=== PATIENT | female | born 1945 | race Caucasian/White ===

== ENCOUNTER 2017-10-17 10:10 | Outpatient (CLI) | payer MEDICARE ==
[~2017-10-17 10:10] MED LIST: ALBU8.5H8 IH; BUPR300T54 PO; CHOL10002 PO; GLIM4TAB79 PO; HYDR-565 PO; KEN0.1O TP; LISI-644 PO; MECL12.584 PO; METF-516 PO; OMEP20TA5 PO; SIMV40TA4 PO; SITA50TA7 PO
[2017-10-17] MEDS ORDERED: gadopentetate dimeglumine 7.5 MMOL/15 ML syringe ONE (14:48)
== END 2017-10-17 23:59 | disposition home or self-care (01) ==
LOC: RAD 10:10
PROVIDERS: ATTEND Family Medicine
DX: G31.9 Degenerative disease of nervous system, unspecified (principal); I10 Essential (primary) hypertension; E11.9 Type 2 diabetes mellitus without complications; J44.9 Chronic obstructive pulmonary disease, unspecified; Z87.891 Personal history of nicotine dependence
CPT/HCPCS: A9579

== ENCOUNTER 2017-12-05 12:08 | Inpatient (IN) | payer MEDICARE, OTHER ==
[~2017-12-05] VITALS: Ht 175.3 cm; Wt 68.2 kg
[~2017-12-05 12:08] MED LIST changes: +CYCL-394 PO; +DOCU-261 PO; -HYDR-565 PO; +HYDR-569 PO; +PROM25TA14
[2017-12-05 14:21] LABS: BASOPHILS % (AUTO) 0.3 % (0-1); EOSINOPHILS # (AUTO) 0.1 X10'3 (0-0.9); EOSINOPHILS % (AUTO) 1.7 % (0-6); HEMATOCRIT 40.8 % (35.0-45.0); HEMOGLOBIN 14.4 g/dl (12.0-16.0); LYMPHOCYTES # (AUTO) 1.3 X10'3 (1.1-4.8); LYMPHOCYTES % (AUTO) 20.8 % (21-51); MEAN CORPUSCULAR HEMOGLOBIN 35.6 PG (27.0-31.0); MEAN CORPUSCULAR HGB CONC 35.3 % (33.0-36.5); MEAN CORPUSCULAR VOLUME 100.9 FL (78-98); MEAN PLATELET VOLUME 8.6 FL (7.4-10.4); MONOCYTES # (AUTO) 0.5 X10'3 (0-0.9); MONOCYTES % (AUTO) 8.4 % (2-12); NEUTROPHILS # (AUTO) 4.4 X10'3 (1.8-7.7); NEUTROPHILS % (AUTO) 68.8 % (42-75); PLATELET COUNT 133 X10'3 (140-440); RED BLOOD COUNT 4.04 X10'6 (4.20-5.60); RED CELL DISTRIBUTION WIDTH 13.9 % (11.5-14.5); WHITE BLOOD COUNT 6.5 X10'3 (4.5-11.0)
[2017-12-05 14:30] LABS: INR 1.2 INR; PARTIAL THROMBOPLASTIN TIME 31 SECONDS (22-32); PROTHROMBIN TIME 12.5 SECONDS (9.0-12.0)
[2017-12-05 14:37] LABS: ALANINE AMINOTRANSFERASE 38 U/L (12-78); ALBUMIN 2.7 G/DL (3.4-5.0); ALBUMIN/GLOBULIN RATIO 0.7 (1.1-1.5); ALKALINE PHOSPHATASE 176 IU/L (46-116); ANION GAP 11 (8-16); ASPARTATE AMINO TRANSFERASE 41 U/L (10-37); BILIRUBIN,TOTAL 1.5 MG/DL (0.1-1.0); BLOOD UREA NITROGEN 26 MG/DL (7-18); BUN/CREATININE RATIO 24.8 (6.6-38.0); CALCIUM 9.1 MG/DL (8.5-10.1); CHLORIDE 101 MMOL/L (99-107); CREATININE 1.05 MG/DL (0.40-0.90); ETHANOL < 0.010 GM/DL (0.0-0.010); GLUCOSE 165 MG/DL (70-104); POTASSIUM 3.7 MMOL/L (3.5-5.1); SODIUM 135 MMOL/L (135-145); TOTAL CARBON DIOXIDE 23.1 MMOL/L (24-32); TOTAL PROTEIN 6.6 G/DL (6.4-8.2); eGFR 52 ML/MIN
[2017-12-05 14:39] LABS: LACTIC SEPSIS 1.7 MMOL/L (0.4-2.0)
[2017-12-05 14:40] LABS: CLARITY,URINE CLOUDY (Clear); COLOR,URINE YELLOW (Yellow); GLUCOSE, URINE NEGATIVE (Neg); KETONES,URINE NEGATIVE (Neg); LEUKOCYTE ESTERASE ,URINE SMALL (Neg); NITRITES, URINE NEGATIVE (Neg); OCCULT BLOOD,URINE NEGATIVE (Neg); PH,URINE 5.5 (4.8-8.0); PROTEIN,URINE NEGATIVE (Neg); UA COLLECTION TYPE STRAIGHT CATH; UROBILINOGEN,URINE >=8.0 E.U/dL (0.2-1.0)
[2017-12-05 14:47] LABS: MUCUS STRANDS FEW /LPF (Neg); SQUAMOUS EPITHELIAL CELL,UR MANY /LPF (FEW)
[2017-12-05 14:48] LABS: BACTERIA,URINE 3+ /HPF (Neg); RBC,URINE 0-2 /HPF (0-2); WBC,URINE 20-30 /HPF (0-4)
[2017-12-05 14:52] LABS: URINE AMPHETAMINE SCREEN NEGATIVE (Neg); URINE BARBITUATE SCREEN NEGATIVE (Neg); URINE BENZODIAZEPINES SCREEN NEGATIVE (Neg); URINE CANNABINOID SCREEN NEGATIVE (Neg); URINE COCAINE SCREEN NEGATIVE (Neg); URINE METHADONE SCREEN NEGATIVE (Neg); URINE OPIATE SCREEN NEGATIVE (Neg); URINE PHENCYCLIDINE SCREEN NEGATIVE (Neg)
[2017-12-05] MEDS ORDERED: acetaminophen 650mg rectal suppository RC PRN (17:15)
[2017-12-05] MEDS ORDERED: acetaminophen 325mg tablet PO PRN ×2 (17:15)
[2017-12-05] MEDS ORDERED: magnesium hydroxide 30ml (MOM) UD suspension PO PRN (17:15)
[2017-12-05] MEDS ORDERED: HYDROmorphone inj. 0.5 MG/0.5 ML DISP.SYRIN IV PRN ×2 (17:15)
[2017-12-05] MEDS ORDERED: morphine 4 MG/ML inj SYRINge IV PRN ×2 (17:15)
[2017-12-05] MEDS ORDERED: HYDROcodone/acetaminophen 10/325mg tab PO PRN (17:15)
[2017-12-05] MEDS ORDERED: diphenhydrAMINE 50 mg/ml inj IV PRN (17:15)
[2017-12-05] MEDS ORDERED: ondansetron/PF 4mg/2ml inj IV PRN (17:15)
[2017-12-05] MEDS ORDERED: diphenhydrAMINE 25mg capsule PO PRN (17:15)
[2017-12-05] MEDS ORDERED: bisacodyl 10mg suppository rectal RC PRN (17:15)
[2017-12-05] MEDS ORDERED: metoclopramide 5 mg/ml inj IV PRN (17:15)
[2017-12-05] MEDS ORDERED: HYDROcodone/acetaminophen 5mg/325mg tablet PO PRN (17:15)
[2017-12-05] MEDS ORDERED: CefTRIAXone/D5W-Rocephin 1gm 50 ML IV SCH (17:20)
[2017-12-05] MEDS ORDERED: dextrose 50%-water 50ml dispensing syringe IV PRN ×2 (17:25)
[2017-12-05] MEDS ORDERED: dextrose ORAL solution 15 GM/59 ML bottle PO PRN ×2 (17:25)
[2017-12-05] MEDS ORDERED: glucagon, human recombinant 1mg kit SUBCUT PRN (17:25)
[2017-12-05] MEDS ORDERED: insulin Lispro (HumaLOG) vial - multi-dose SQ SCH (17:25)
[2017-12-05] MEDS ORDERED: MESSAGE TO PHARMACY PO ONE (17:25)
[2017-12-05] MEDS ORDERED: HYDROmorphone 1 mg/ml syringe IV PRN ×2 (17:27)
[2017-12-05] MEDS ORDERED: CefTRIAXone/D5W-Rocephin 1gm 50 ML IV ONE (17:55)
[2017-12-05 18:00] VITALS: BP 143/51
[2017-12-05 18:04] LABS: LIPASE 305 U/L (73-393); MAGNESIUM 1.5 MG/DL (1.5-2.4)
[2017-12-05 18:28] LABS: HIV ANTIBODY 1&2 RAPID NON-REACTIVE (Neg)
[2017-12-05] MEDS: mag hydrox/Alum hydrox/simeth 30ml oral suspension PO PRN (19:55)
[2017-12-05] MEDS: docusate sod 100mg capsule PO SCH (20:11)
[2017-12-05] MEDS: heparin, porcine 5000 units/ml vial SQ SCH (20:13)
[2017-12-05] MEDS ORDERED: temazepam 15mg capsule PO PRN (21:00)
[2017-12-05] MEDS: potassium Cl 20mEq in NS 1,000 ML IV SCH (21:40)
[2017-12-06] VITALS: BP 125/49
[2017-12-06] MEDS: potassium Cl 20mEq in NS 1,000 ML IV SCH ×2 (03:14→10:07)
[2017-12-06 04:50] LABS: BASOPHILS # (AUTO) 0.1 X10'3 (0-0.2); BASOPHILS % (AUTO) 0.9 % (0-1); EOSINOPHILS # (AUTO) 0.1 X10'3 (0-0.9); HEMATOCRIT 37.9 % (35.0-45.0); HEMOGLOBIN 13.1 g/dl (12.0-16.0); LYMPHOCYTES # (AUTO) 1.5 X10'3 (1.1-4.8); LYMPHOCYTES % (AUTO) 25.1 % (21-51); MEAN CORPUSCULAR HEMOGLOBIN 35.3 PG (27.0-31.0); MEAN CORPUSCULAR HGB CONC 34.7 % (33.0-36.5); MEAN CORPUSCULAR VOLUME 101.9 FL (78-98); MEAN PLATELET VOLUME 9.2 FL (7.4-10.4); MONOCYTES # (AUTO) 0.6 X10'3 (0-0.9); MONOCYTES % (AUTO) 9.6 % (2-12); NEUTROPHILS # (AUTO) 3.7 X10'3 (1.8-7.7); NEUTROPHILS % (AUTO) 62.4 % (42-75); PLATELET COUNT 117 X10'3 (140-440); RED BLOOD COUNT 3.72 X10'6 (4.20-5.60); RED CELL DISTRIBUTION WIDTH 13.1 % (11.5-14.5)
[2017-12-06 05:16] LABS: ALANINE AMINOTRANSFERASE 33 U/L (12-78); ALBUMIN 2.3 G/DL (3.4-5.0); ALBUMIN/GLOBULIN RATIO 0.6 (1.1-1.5); ALKALINE PHOSPHATASE 164 IU/L (46-116); ANION GAP 10 (8-16); ASPARTATE AMINO TRANSFERASE 43 U/L (10-37); BILIRUBIN,TOTAL 1.2 MG/DL (0.1-1.0); BLOOD UREA NITROGEN 28 MG/DL (7-18); BUN/CREATININE RATIO 26.7 (6.6-38.0); CALCIUM 8.5 MG/DL (8.5-10.1); CHLORIDE 103 MMOL/L (99-107); CREATININE 1.05 MG/DL (0.40-0.90); GLUCOSE 135 MG/DL (70-104); SODIUM 135 MMOL/L (135-145); TOTAL CARBON DIOXIDE 22.3 MMOL/L (24-32); TOTAL PROTEIN 5.9 G/DL (6.4-8.2); eGFR 52 ML/MIN
[2017-12-06 07:00] VITALS: BP 116/42
[2017-12-06] MEDS ORDERED: pantoprazole 40mg Tablet.DR PO SCH (07:30)
[2017-12-06] MEDS ORDERED: CefTRIAXone/D5W-Rocephin 1gm 50 ML IV SCH (08:00)
[2017-12-06] MEDS ORDERED: buPROPion SR 150mg tablet PO SCH (08:00)
[2017-12-06] MEDS ORDERED: LACT10SO67 PO (08:10)
[2017-12-06] MEDS ORDERED: SERT25TA5 PO (08:10)
[2017-12-06] MEDS ORDERED: NOVLG SUBCUT (08:10)
[2017-12-06] MEDS: heparin, porcine 5000 units/ml vial SQ SCH (08:19)
[2017-12-06] MEDS: docusate sod 100mg capsule PO SCH (08:19)
[2017-12-06] MEDS ORDERED: buproprion 150mg XL (24-hour) tablet PO SCH (09:00)
[2017-12-06] MEDS ORDERED: lisinopril 20mg tablet PO SCH (09:55)
[2017-12-06] MEDS ORDERED: meclizine 12.5mg tablet PO PRN (09:55)
[2017-12-06] MEDS ORDERED: cyclobenzaprine 10mg tablet PO PRN (09:55)
[2017-12-06] MEDS ORDERED: albuterol 2.5 MG/3 ML nebule NEB PRN (09:55)
[2017-12-06 11:00] VITALS: BP 91/51
[2017-12-06] MEDS: mag hydrox/Alum hydrox/simeth 30ml oral suspension PO PRN (13:35)
[2017-12-06] MEDS ORDERED: lactulose 20gm/30ml cup PO SCH (14:00)
[2017-12-06] MEDS ORDERED: lactobacillus rhamnosus 10,000 MMU CELLS/CAPSULE PO SCH (20:00)
[2017-12-07] MEDS ORDERED: sertraline 25mg tablet PO SCH (08:00)
[2017-12-07] MEDS ORDERED: atorvastatin 20mg tablet PO SCH (08:00)
[2017-12-07] MEDS ORDERED: pantoprazole 40mg Tablet.DR PO SCH (08:00)
[2017-12-07] MEDS ORDERED: docusate sod 100mg capsule PO SCH (08:00)
== END 2017-12-06 15:46 | DRG 683 ==
LOC: ER 12:09 → ED HOLD 17:14 → SUR 3N 18:47
PROVIDERS: ADMIT Family Medicine; ATTEND Family Medicine
DX: N17.9 Acute kidney failure, unspecified (principal); N39.0 Urinary tract infection, site not specified; E86.0 Dehydration; I10 Essential (primary) hypertension; I48.91 Unspecified atrial fibrillation; E11.65 Type 2 diabetes mellitus with hyperglycemia; J44.9 Chronic obstructive pulmonary disease, unspecified; G89.29 Other chronic pain; M54.9 Dorsalgia, unspecified; K73.9 Chronic hepatitis, unspecified; Z59.0 Homelessness; Z90.49 Acquired absence of other specified parts of digestive tract; Z90.710 Acquired absence of both cervix and uterus; Z79.899 Other long term (current) drug therapy; Z79.4 Long term (current) use of insulin; Z86.73 Personal history of transient ischemic attack (TIA), and cerebral infarction without residual deficits
CPT/HCPCS: 36415; 71045; 80053; 80305; 80320; 81001; 82140; 82948; 83605; 83690; 83735; 83880; 84100; 84484; 85025; 85610; 85730; 86703; 87040; 87070; 87077; 87088; 87186; 93005; A4353; J0696; J1644

== ENCOUNTER 2018-01-25 06:09 | Inpatient (IN) | payer MEDICARE, OTHER ==
[~2018-01-25] VITALS: Ht 597.6 cm; Wt 72.7 kg
[~2018-01-25 06:09] MED LIST changes: -KEN0.1O TP; +LACT10SO67 PO; +NOVLG SUBCUT; -PROM25TA14; +SERT25TA5 PO
[2018-01-25] MEDS ORDERED: glycopyrrolate 0.2mg/ml inj IV ONE (06:10)
[2018-01-25] MEDS ORDERED: normal saline 1000ML IV soln IVB ONE (06:10)
[2018-01-25] MEDS ORDERED: loperamide 2mg capsule PO ONE (06:15)
[2018-01-25 07:17] LABS: BASOPHILS % (AUTO) 0.8 % (0-1); EOSINOPHILS # (AUTO) 0.3 X10'3 (0-0.9); EOSINOPHILS % (AUTO) 6.1 % (0-6); LYMPHOCYTES # (AUTO) 0.9 X10'3 (1.1-4.8); LYMPHOCYTES % (AUTO) 21.5 % (21-51); MEAN CORPUSCULAR HGB CONC 34.4 % (33.0-36.5); MEAN CORPUSCULAR VOLUME 96.1 FL (78-98); MEAN PLATELET VOLUME 8.6 FL (7.4-10.4); MONOCYTES # (AUTO) 0.4 X10'3 (0-0.9); MONOCYTES % (AUTO) 8.4 % (2-12); NEUTROPHILS # (AUTO) 2.7 X10'3 (1.8-7.7); NEUTROPHILS % (AUTO) 63.2 % (42-75); PLATELET COUNT 116 X10'3 (140-440); RED BLOOD COUNT 3.64 X10'6 (4.20-5.60); RED CELL DISTRIBUTION WIDTH 12.3 % (11.5-14.5); WHITE BLOOD COUNT 4.3 X10'3 (4.5-11.0)
[2018-01-25 07:32] LABS: ALANINE AMINOTRANSFERASE 31 U/L (12-78); ALBUMIN 2.5 G/DL (3.4-5.0); ALBUMIN/GLOBULIN RATIO 0.7 (1.1-1.5); ALKALINE PHOSPHATASE 161 IU/L (46-116); ANION GAP 10 (8-16); ASPARTATE AMINO TRANSFERASE 46 U/L (10-37); BILIRUBIN,TOTAL 1.6 MG/DL (0.1-1.0); BLOOD UREA NITROGEN 15 MG/DL (7-18); BUN/CREATININE RATIO 14.6 (6.6-38.0); CALCIUM 8.6 MG/DL (8.5-10.1); CHLORIDE 105 MMOL/L (99-107); CREATININE 1.03 MG/DL (0.40-0.90); GLUCOSE 198 MG/DL (70-104); LIPASE 130 U/L (73-393); POTASSIUM 3.5 MMOL/L (3.5-5.1); SODIUM 138 MMOL/L (135-145); TOTAL CARBON DIOXIDE 23.3 MMOL/L (24-32); eGFR 53 ML/MIN
[2018-01-25 08:42] LABS: CLARITY,URINE Clear (Clear); GLUCOSE, URINE Negative (Neg); KETONES,URINE 15 mg/dl (Neg); LEUKOCYTE ESTERASE ,URINE Small (Neg); NITRITES, URINE Negative (Neg); OCCULT BLOOD,URINE Negative (Neg); PH,URINE 8.5 (4.8-8.0); PROTEIN,URINE 30 mg/dl (Neg)
[2018-01-25 08:44] LABS: COLOR,URINE AMBER (Yellow); UA COLLECTION TYPE CLN CATCH MIDSTREAM
[2018-01-25 08:54] LABS: BACTERIA,URINE FEW /HPF (Neg); MUCUS STRANDS MODERATE /LPF (Neg); RBC,URINE NONE SEEN /HPF (0-2); SQUAMOUS EPITHELIAL CELL,UR FEW /LPF (FEW)
[2018-01-25 10:09] LABS: C DIFF ANTIGEN NEGATIVE (NEGATIVE); C DIFF SPECIMEN=DIARRHEA? ACCEPTABLE; C DIFFICILE TOXINS A&B NEGATIVE (Neg)
[2018-01-25] MEDS ORDERED: potassium Cl 40MEQ/NS 500ml 500 ML IV PRN ×2 (10:55)
[2018-01-25] MEDS ORDERED: magnesium hydroxide 30ml (MOM) UD suspension PO PRN (10:55)
[2018-01-25] MEDS ORDERED: magnesium 4gm in 100ml NS 100 ML IV PRN (10:55)
[2018-01-25] MEDS ORDERED: potassium Cl 20 mEq SR tablet PO PRN (10:55)
[2018-01-25] MEDS ORDERED: magnesium 1gm/100ml D5W IVPB 100 ML IV PRN (10:55)
[2018-01-25] MEDS ORDERED: ondansetron/PF 4mg/2ml inj IV PRN (10:55)
[2018-01-25] MEDS ORDERED: magnesium Cl slow-release 64mg tablet PO PRN (10:55)
[2018-01-25] MEDS ORDERED: acetaminophen 325mg tablet PO PRN (10:55)
[2018-01-25] MEDS ORDERED: CefTRIAXone/D5W-Rocephin 1gm 50 ML IV SCH (11:05)
[2018-01-25] MEDS ORDERED: MESSAGE TO PHARMACY PO ONE ×2 (11:10→15:45)
[2018-01-25] MEDS ORDERED: dextrose 50%-water 50ml dispensing syringe IV PRN ×4 (11:10→15:45)
[2018-01-25] MEDS ORDERED: insulin Lispro (HumaLOG) vial - multi-dose SQ SCH ×2 (11:10→15:45)
[2018-01-25] MEDS ORDERED: glucagon, human recombinant 1mg kit SUBCUT PRN ×2 (11:10→15:45)
[2018-01-25] MEDS ORDERED: dextrose ORAL solution 15 GM/59 ML bottle PO PRN ×4 (11:10→15:45)
[2018-01-25] MEDS ORDERED: FAMO20TA8 PO (12:18)
[2018-01-25] MEDS ORDERED: FLUO20CA39 PO (12:18)
[2018-01-25] MEDS ORDERED: HYDR-565 PO (12:19)
[2018-01-25 13:30] VITALS: BP 105/50
[2018-01-25 13:39] LABS: HEMOGLOBIN A1C 8.2 % (4.5-6.2)
[2018-01-25] MEDS: normal saline 1000ml 1,000 ML IV SCH ×3 (14:09→23:55)
[2018-01-25 19:00] VITALS: BP 125/58
[2018-01-25] MEDS: mag hydrox/Alum hydrox/simeth 30ml oral suspension PO PRN (19:45)
[2018-01-25] MEDS: heparin, porcine 5000 units/ml vial SQ SCH (19:46)
[2018-01-25] MEDS ORDERED: insulin glargine (Lantus) pen - multi-dose SQ SCH (21:00)
[2018-01-25] MEDS: insulin glargine (Lantus) pen - multi-dose SQ SCH (21:00)
[2018-01-25] MEDS: loperamide 2mg capsule PO PRN (23:55)
[2018-01-26] VITALS: BP 148/71
[2018-01-26] MEDS: loperamide 2mg capsule PO PRN ×2 (04:36→13:40)
[2018-01-26 05:25] LABS: BASOPHILS % (AUTO) 0.5 % (0-1); EOSINOPHILS # (AUTO) 0.5 X10'3 (0-0.9); EOSINOPHILS % (AUTO) 9.2 % (0-6); HEMATOCRIT 32.1 % (35.0-45.0); HEMOGLOBIN 11.1 g/dl (12.0-16.0); LYMPHOCYTES # (AUTO) 1.2 X10'3 (1.1-4.8); LYMPHOCYTES % (AUTO) 23.5 % (21-51); MEAN CORPUSCULAR HEMOGLOBIN 33.6 PG (27.0-31.0); MEAN CORPUSCULAR HGB CONC 34.6 % (33.0-36.5); MEAN CORPUSCULAR VOLUME 96.9 FL (78-98); MEAN PLATELET VOLUME 9.2 FL (7.4-10.4); MONOCYTES # (AUTO) 0.4 X10'3 (0-0.9); MONOCYTES % (AUTO) 8.6 % (2-12); NEUTROPHILS # (AUTO) 2.8 X10'3 (1.8-7.7); NEUTROPHILS % (AUTO) 58.2 % (42-75); PLATELET COUNT 102 X10'3 (140-440); RED BLOOD COUNT 3.31 X10'6 (4.20-5.60); RED CELL DISTRIBUTION WIDTH 12.7 % (11.5-14.5); WHITE BLOOD COUNT 4.9 X10'3 (4.5-11.0)
[2018-01-26 05:48] LABS: ALANINE AMINOTRANSFERASE 22 U/L (12-78); ALBUMIN 2.1 G/DL (3.4-5.0); ALBUMIN/GLOBULIN RATIO 0.7 (1.1-1.5); ALKALINE PHOSPHATASE 129 IU/L (46-116); ANION GAP 12 (8-16); ASPARTATE AMINO TRANSFERASE 35 U/L (10-37); BILIRUBIN,TOTAL 1.3 MG/DL (0.1-1.0); BLOOD UREA NITROGEN 12 MG/DL (7-18); BUN/CREATININE RATIO 15.4 (6.6-38.0); CALCIUM 7.9 MG/DL (8.5-10.1); CHLORIDE 108 MMOL/L (99-107); CREATININE 0.78 MG/DL (0.40-0.90); GLUCOSE 140 MG/DL (70-104); MAGNESIUM 1.5 MG/DL (1.5-2.4); POTASSIUM 3.4 MMOL/L (3.5-5.1); SODIUM 139 MMOL/L (135-145); TOTAL CARBON DIOXIDE 19.3 MMOL/L (24-32); TOTAL PROTEIN 5.3 G/DL (6.4-8.2); eGFR 73 ML/MIN
[2018-01-26] MEDS: heparin, porcine 5000 units/ml vial SQ SCH ×2 (08:00→20:23)
[2018-01-26] MEDS: K and/or MAG REPLACEMENT MC SCH (08:00)
[2018-01-26 08:42] VITALS: BP 84/44
[2018-01-26] MEDS: cefTRIAXone 1g/NS 100ml IVPB 50 ML IV SCH (08:55)
[2018-01-26 08:57] VITALS: BP 104/47
[2018-01-26 11:35] VITALS: BP 99/55
[2018-01-26] MEDS: metroNIDAZOLE-Flagyl 500mg/NS 100 ML IV SCH ×3 (13:23→23:29)
[2018-01-26] MEDS: potassium Cl 20 mEq SR tablet PO PRN ×3 (13:24→23:29)
[2018-01-26] MEDS: normal saline 1000ml 1,000 ML IV SCH (13:40)
[2018-01-26] MEDS ORDERED: meclizine 12.5mg tablet PO PRN (14:40)
[2018-01-26] MEDS ORDERED: albuterol 2.5 MG/3 ML nebule NEB PRN (14:55)
[2018-01-26] MEDS: sertraline 25mg tablet PO SCH (16:32)
[2018-01-26] MEDS: lactobacillus rhamnosus 10,000 MMU CELLS/CAPSULE PO SCH (16:32)
[2018-01-26] MEDS: potassium Cl 20mEq in NS 1,000 ML IV SCH (16:48)
[2018-01-26 18:50] VITALS: BP 129/42
[2018-01-26] MEDS: HYDROcodone/acetaminophen 5mg/325mg tablet PO PRN ×2 (19:03→23:48)
[2018-01-26] MEDS: famotidine 20mg tablet PO SCH (20:22)
[2018-01-26] MEDS: buPROPion SR 150mg tablet PO SCH (20:22)
[2018-01-26] MEDS: diatr meglu/diatrizoate 30ml oral sol.-(3 dose) bottle PO SCH (22:17)
[2018-01-26] MEDS: insulin glargine (Lantus) pen - multi-dose SQ SCH (22:19)
[2018-01-26 23:00] VITALS: BP_SYST 111; BP_SYST 169; BP_DIAS 39; BP_DIAS 67
[2018-01-27] MEDS ORDERED: HYDROcodone/acetaminophen 5mg/325mg tablet PO PRN (01:20)
[2018-01-27 05:40] LABS: BASOPHILS % (AUTO) 0.5 % (0-1); EOSINOPHILS # (AUTO) 0.4 X10'3 (0-0.9); EOSINOPHILS % (AUTO) 10.3 % (0-6); HEMATOCRIT 30.1 % (35.0-45.0); HEMOGLOBIN 10.3 g/dl (12.0-16.0); LYMPHOCYTES % (AUTO) 29.3 % (21-51); MEAN CORPUSCULAR HGB CONC 34.1 % (33.0-36.5); MEAN CORPUSCULAR VOLUME 96.7 FL (78-98); MEAN PLATELET VOLUME 9.1 FL (7.4-10.4); MONOCYTES # (AUTO) 0.4 X10'3 (0-0.9); MONOCYTES % (AUTO) 9.9 % (2-12); NEUTROPHILS # (AUTO) 1.8 X10'3 (1.8-7.7); PLATELET COUNT 83 X10'3 (140-440); RED BLOOD COUNT 3.11 X10'6 (4.20-5.60); RED CELL DISTRIBUTION WIDTH 12.9 % (11.5-14.5); WHITE BLOOD COUNT 3.6 X10'3 (4.5-11.0)
[2018-01-27] MEDS: potassium Cl 20mEq in NS 1,000 ML IV SCH (05:47)
[2018-01-27 06:17] LABS: ALANINE AMINOTRANSFERASE 19 U/L (12-78); ALBUMIN 1.9 G/DL (3.4-5.0); ALBUMIN/GLOBULIN RATIO 0.7 (1.1-1.5); ALKALINE PHOSPHATASE 103 IU/L (46-116); ANION GAP 8 (8-16); ASPARTATE AMINO TRANSFERASE 27 U/L (10-37); BLOOD UREA NITROGEN 15 MG/DL (7-18); BUN/CREATININE RATIO 18.3 (6.6-38.0); CALCIUM 7.4 MG/DL (8.5-10.1); CHLORIDE 111 MMOL/L (99-107); CREATININE 0.82 MG/DL (0.40-0.90); GLUCOSE 101 MG/DL (70-104); MAGNESIUM 1.5 MG/DL (1.5-2.4); POTASSIUM 3.8 MMOL/L (3.5-5.1); SODIUM 138 MMOL/L (135-145); TOTAL CARBON DIOXIDE 19.1 MMOL/L (24-32); TOTAL PROTEIN 4.8 G/DL (6.4-8.2); eGFR 69 ML/MIN
[2018-01-27 06:59] VITALS: BP 108/44
[2018-01-27] MEDS: cefTRIAXone 1g/NS 100ml IVPB 50 ML IV SCH (07:17)
[2018-01-27] MEDS: diatr meglu/diatrizoate 30ml oral sol.-(3 dose) bottle PO SCH ×2 (07:17→09:18)
[2018-01-27] MEDS: K and/or MAG REPLACEMENT MC SCH (08:00)
[2018-01-27] MEDS: heparin, porcine 5000 units/ml vial SQ SCH ×2 (08:00→19:58)
[2018-01-27] MEDS: loperamide 2mg capsule PO PRN (09:15)
[2018-01-27] MEDS: HYDROcodone/acetaminophen 5mg/325mg tablet PO PRN ×3 (09:16→20:57)
[2018-01-27] MEDS: pantoprazole 40mg Tablet.DR PO SCH (10:21)
[2018-01-27] MEDS: metroNIDAZOLE-Flagyl 500mg/NS 100 ML IV SCH ×2 (10:21→15:55)
[2018-01-27] MEDS: lactobacillus rhamnosus 10,000 MMU CELLS/CAPSULE PO SCH ×2 (10:21→15:55)
[2018-01-27] MEDS: famotidine 20mg tablet PO SCH ×2 (10:21→19:57)
[2018-01-27] MEDS: buPROPion SR 150mg tablet PO SCH ×2 (10:21→19:57)
[2018-01-27] MEDS: sertraline 25mg tablet PO SCH (10:21)
[2018-01-27] MEDS: FLUoxetine 20mg capsule PO SCH (10:21)
[2018-01-27] MEDS: atorvastatin 20mg tablet PO SCH (10:22)
[2018-01-27] MEDS: mag hydrox/Alum hydrox/simeth 30ml oral suspension PO PRN (11:01)
[2018-01-27 12:22] VITALS: BP 128/50
[2018-01-27] MEDS ORDERED: PEG 3350/Na sulf,bicarb,Cl/KCl oral sol 4 liter bottle PO ONE (16:00)
[2018-01-27 20:00] VITALS: BP 115/44
[2018-01-27] MEDS: insulin glargine (Lantus) pen - multi-dose SQ SCH (21:00)
[2018-01-28] VITALS (16 sets, daily range): BP systolic 85–112; BP diastolic 36–83
[2018-01-28] MEDS: metroNIDAZOLE-Flagyl 500mg/NS 100 ML IV SCH ×2 (00:14→09:11)
[2018-01-28] MEDS: HYDROcodone/acetaminophen 5mg/325mg tablet PO PRN ×3 (00:26→21:09)
[2018-01-28] MEDS: potassium Cl 20mEq in NS 1,000 ML IV SCH ×3 (01:45→21:13)
[2018-01-28 05:00] LABS: BASOPHILS % (AUTO) 0.5 % (0-1); EOSINOPHILS # (AUTO) 0.3 X10'3 (0-0.9); EOSINOPHILS % (AUTO) 11.3 % (0-6); HEMATOCRIT 29.1 % (35.0-45.0); LYMPHOCYTES # (AUTO) 0.9 X10'3 (1.1-4.8); MEAN CORPUSCULAR HEMOGLOBIN 33.3 PG (27.0-31.0); MEAN CORPUSCULAR HGB CONC 34.3 % (33.0-36.5); MEAN CORPUSCULAR VOLUME 97.2 FL (78-98); MONOCYTES # (AUTO) 0.3 X10'3 (0-0.9); MONOCYTES % (AUTO) 9.6 % (2-12); NEUTROPHILS # (AUTO) 1.3 X10'3 (1.8-7.7); NEUTROPHILS % (AUTO) 47.6 % (42-75); PLATELET COUNT 88 X10'3 (140-440); RED CELL DISTRIBUTION WIDTH 13.8 % (11.5-14.5); WHITE BLOOD COUNT 2.8 X10'3 (4.5-11.0)
[2018-01-28 05:19] LABS: ALANINE AMINOTRANSFERASE 14 U/L (12-78); ALBUMIN 1.8 G/DL (3.4-5.0); ALBUMIN/GLOBULIN RATIO 0.6 (1.1-1.5); ALKALINE PHOSPHATASE 99 IU/L (46-116); ANION GAP 9 (8-16); ASPARTATE AMINO TRANSFERASE 26 U/L (10-37); BILIRUBIN,TOTAL 0.7 MG/DL (0.1-1.0); BLOOD UREA NITROGEN 14 MG/DL (7-18); BUN/CREATININE RATIO 16.9 (6.6-38.0); CALCIUM 7.6 MG/DL (8.5-10.1); CHLORIDE 110 MMOL/L (99-107); CREATININE 0.83 MG/DL (0.40-0.90); GLUCOSE 85 MG/DL (70-104); MAGNESIUM 1.6 MG/DL (1.5-2.4); POTASSIUM 3.7 MMOL/L (3.5-5.1); SODIUM 138 MMOL/L (135-145); TOTAL CARBON DIOXIDE 19.2 MMOL/L (24-32); TOTAL PROTEIN 4.6 G/DL (6.4-8.2); eGFR 68 ML/MIN
[2018-01-28 05:42] LABS: LARGE PLATELETS FEW; PLATELET ESTIMATE DECREASED; TOTAL CELLS COUNTED 100
[2018-01-28] MEDS: heparin, porcine 5000 units/ml vial SQ SCH ×2 (08:00→21:22)
[2018-01-28] MEDS: K and/or MAG REPLACEMENT MC SCH (08:00)
[2018-01-28] MEDS: atorvastatin 20mg tablet PO SCH (08:08)
[2018-01-28] MEDS: FLUoxetine 20mg capsule PO SCH (08:09)
[2018-01-28] MEDS: famotidine 20mg tablet PO SCH (08:09)
[2018-01-28] MEDS: cefTRIAXone 1g/NS 100ml IVPB 50 ML IV SCH (08:09)
[2018-01-28] MEDS: buPROPion SR 150mg tablet PO SCH ×2 (08:09→21:09)
[2018-01-28] MEDS: pantoprazole 40mg Tablet.DR PO SCH (08:10)
[2018-01-28] MEDS: lactobacillus rhamnosus 10,000 MMU CELLS/CAPSULE PO SCH ×2 (08:12→21:22)
[2018-01-28] MEDS: sertraline 25mg tablet PO SCH (08:12)
[2018-01-28 10:21] LABS: CRYPTOSPORIDIUM AG NEGATIVE (Neg); GIARDIA LAMBLIA AG NEGATIVE (Neg)
[2018-01-28] MEDS ORDERED: LIDOcaine Viscous 15ml cup ONE (14:45)
[2018-01-28] MEDS ORDERED: fentaNYL/PF 50MCG/1 ML 2ML syringe ONE (14:45)
[2018-01-28] MEDS ORDERED: MIDAZolam 5mg/5ml vial ONE (14:45)
[2018-01-28] MEDS ORDERED: loperamide 2mg capsule PO ONE (16:40)
[2018-01-28] MEDS: insulin glargine (Lantus) pen - multi-dose SQ SCH (21:00)
[2018-01-28] MEDS ORDERED: psyllium seed 3.4 gm packet PO SCH (21:00)
[2018-01-28] MEDS: loperamide 2mg capsule PO PRN (21:09)
[2018-01-28] MEDS ORDERED: zolpidem 5mg tablet PO PRN (22:10)
[2018-01-29] VITALS: BP 111/65
[2018-01-29 04:00] VITALS: BP 95/56
[2018-01-29 05:10] LABS: BASOPHILS % (AUTO) 0.4 % (0-1); EOSINOPHILS # (AUTO) 0.3 X10'3 (0-0.9); EOSINOPHILS % (AUTO) 11.2 % (0-6); HEMATOCRIT 30.7 % (35.0-45.0); HEMOGLOBIN 10.5 g/dl (12.0-16.0); LYMPHOCYTES # (AUTO) 0.8 X10'3 (1.1-4.8); LYMPHOCYTES % (AUTO) 32.7 % (21-51); MEAN CORPUSCULAR HEMOGLOBIN 33.4 PG (27.0-31.0); MEAN CORPUSCULAR HGB CONC 34.2 % (33.0-36.5); MEAN CORPUSCULAR VOLUME 97.7 FL (78-98); MONOCYTES # (AUTO) 0.3 X10'3 (0-0.9); MONOCYTES % (AUTO) 11.9 % (2-12); NEUTROPHILS # (AUTO) 1.1 X10'3 (1.8-7.7); NEUTROPHILS % (AUTO) 43.8 % (42-75); PLATELET COUNT 91 X10'3 (140-440); RED BLOOD COUNT 3.15 X10'6 (4.20-5.60); RED CELL DISTRIBUTION WIDTH 13.4 % (11.5-14.5); WHITE BLOOD COUNT 2.6 X10'3 (4.5-11.0)
[2018-01-29 05:39] LABS: ALANINE AMINOTRANSFERASE 13 U/L (12-78); ALBUMIN 1.9 G/DL (3.4-5.0); ALBUMIN/GLOBULIN RATIO 0.7 (1.1-1.5); ALKALINE PHOSPHATASE 108 IU/L (46-116); ANION GAP 9 (8-16); ASPARTATE AMINO TRANSFERASE 31 U/L (10-37); BILIRUBIN,TOTAL 0.6 MG/DL (0.1-1.0); BLOOD UREA NITROGEN 12 MG/DL (7-18); BUN/CREATININE RATIO 14.5 (6.6-38.0); CALCIUM 7.7 MG/DL (8.5-10.1); CHLORIDE 109 MMOL/L (99-107); CREATININE 0.83 MG/DL (0.40-0.90); GLUCOSE 95 MG/DL (70-104); MAGNESIUM 1.4 MG/DL (1.5-2.4); POTASSIUM 3.7 MMOL/L (3.5-5.1); SODIUM 140 MMOL/L (135-145); TOTAL CARBON DIOXIDE 21.7 MMOL/L (24-32); TOTAL PROTEIN 4.8 G/DL (6.4-8.2); eGFR 68 ML/MIN
[2018-01-29 06:43] LABS: TOTAL CELLS COUNTED 100
[2018-01-29 06:44] LABS: PLATELET ESTIMATE DECREASED
[2018-01-29 07:00] VITALS: BP_SYST 110; BP_SYST 140; BP_DIAS 55; BP_DIAS 69
[2018-01-29] MEDS: K and/or MAG REPLACEMENT MC SCH (08:00)
[2018-01-29] MEDS: heparin, porcine 5000 units/ml vial SQ SCH (08:00)
[2018-01-29] MEDS: lactobacillus rhamnosus 10,000 MMU CELLS/CAPSULE PO SCH (08:19)
[2018-01-29] MEDS: buPROPion SR 150mg tablet PO SCH (08:19)
[2018-01-29] MEDS: sertraline 25mg tablet PO SCH (08:19)
[2018-01-29] MEDS: atorvastatin 20mg tablet PO SCH (08:19)
[2018-01-29] MEDS: pantoprazole 40mg Tablet.DR PO SCH (08:19)
[2018-01-29 11:00] VITALS: BP 105/39
[2018-01-29] MEDS: HYDROcodone/acetaminophen 5mg/325mg tablet PO PRN (11:23)
[2018-01-29] MEDS: potassium Cl 20mEq in NS 1,000 ML IV SCH (11:26)
[2018-01-29] MEDS ORDERED: magnesium Cl slow-release 64mg tablet PO PRN (11:35)
== END 2018-01-29 15:45 | DRG 391 ==
LOC: ER 06:09 → ED HOLD 10:54 → SUR 3N 13:11
PROVIDERS: ADMIT Internal Medicine; ATTEND Family Medicine
PROC: 0DB98ZX Excision of Duodenum, Via Natural or Artificial Opening Endoscopic, Diagnostic (ICD-10-PCS; principal; 2018-01-28)
PROC: 0D748ZZ Dilation of Esophagogastric Junction, Via Natural or Artificial Opening Endoscopic (ICD-10-PCS; 2018-01-28)
PROC: 0DB68ZX Excision of Stomach, Via Natural or Artificial Opening Endoscopic, Diagnostic (ICD-10-PCS; 2018-01-28)
PROC: 0DBP8ZX Excision of Rectum, Via Natural or Artificial Opening Endoscopic, Diagnostic (ICD-10-PCS; 2018-01-28)
PROC: 0DBL8ZX Excision of Transverse Colon, Via Natural or Artificial Opening Endoscopic, Diagnostic (ICD-10-PCS; 2018-01-28)
PROC: 0DBE8ZX Excision of Large Intestine, Via Natural or Artificial Opening Endoscopic, Diagnostic (ICD-10-PCS; 2018-01-28)
DX: K52.9 Noninfective gastroenteritis and colitis, unspecified (principal); N17.0 Acute kidney failure with tubular necrosis; N39.0 Urinary tract infection, site not specified; E44.0 Moderate protein-calorie malnutrition; Z68.1 Body mass index [BMI] 19.9 or less, adult; K22.2 Esophageal obstruction; I48.91 Unspecified atrial fibrillation; F32.9 Major depressive disorder, single episode, unspecified; E86.0 Dehydration; K26.9 Duodenal ulcer, unspecified as acute or chronic, without hemorrhage or perforation; K44.9 Diaphragmatic hernia without obstruction or gangrene; G89.4 Chronic pain syndrome; I10 Essential (primary) hypertension; Z66 Do not resuscitate; K21.9 Gastro-esophageal reflux disease without esophagitis; E78.5 Hyperlipidemia, unspecified; M54.9 Dorsalgia, unspecified; E11.9 Type 2 diabetes mellitus without complications; K63.5 Polyp of colon; Z90.49 Acquired absence of other specified parts of digestive tract; Z90.710 Acquired absence of both cervix and uterus; Z79.899 Other long term (current) drug therapy; Z79.4 Long term (current) use of insulin; Z86.73 Personal history of transient ischemic attack (TIA), and cerebral infarction without residual deficits
CPT/HCPCS: 36415; 43239; 43249; 45380; 74176; 80053; 81001; 82948; 83036; 83690; 83735; 85025; 87045; 87046; 87070; 87088; 87324; 87328; 87329; 87336; 87449; 88305; 88312; 89055; 96374; 99285; A4353; A4620; A6250; C1726; G0500; J0696; J1644; J1815; J2250; J3010; J3490; J7030; Q9963

== ENCOUNTER 2018-03-17 16:46 | Emergency (ER) | payer MEDICARE, MEDICAID ==
[~2018-03-17] VITALS: Ht 172.7 cm; Wt 54.5 kg
[~2018-03-17 16:46] MED LIST changes: -DOCU-261 PO; +FAMO20TA8 PO; +FLUO20CA39 PO; -LACT10SO67 PO
[2018-03-17 16:57] VITALS: BP 103/51
[2018-03-17 17:50] LABS: BASOPHILS # (AUTO) 0.1 X10'3 (0-0.2); BASOPHILS % (AUTO) 1.6 % (0-1); EOSINOPHILS # (AUTO) 0.1 X10'3 (0-0.9); EOSINOPHILS % (AUTO) 3.2 % (0-6); HEMATOCRIT 31.3 % (35.0-45.0); HEMOGLOBIN 10.6 g/dl (12.0-16.0); LYMPHOCYTES # (AUTO) 0.7 X10'3 (1.1-4.8); LYMPHOCYTES % (AUTO) 22.5 % (21-51); MEAN CORPUSCULAR HEMOGLOBIN 30.9 PG (27.0-31.0); MEAN CORPUSCULAR HGB CONC 33.7 % (33.0-36.5); MEAN CORPUSCULAR VOLUME 91.4 FL (78-98); MEAN PLATELET VOLUME 8.8 FL (7.4-10.4); MONOCYTES # (AUTO) 0.3 X10'3 (0-0.9); MONOCYTES % (AUTO) 8.8 % (2-12); NEUTROPHILS % (AUTO) 63.9 % (42-75); PLATELET COUNT 116 X10'3 (140-440); RED BLOOD COUNT 3.43 X10'6 (4.20-5.60); RED CELL DISTRIBUTION WIDTH 17.8 % (11.5-14.5); WHITE BLOOD COUNT 3.2 X10'3 (4.5-11.0)
[2018-03-17 17:59] LABS: CLARITY,URINE CLEAR (Clear); COLOR,URINE YELLOW (Yellow); GLUCOSE, URINE NEGATIVE (Neg); KETONES,URINE NEGATIVE (Neg); LEUKOCYTE ESTERASE ,URINE NEGATIVE (Neg); NITRITES, URINE NEGATIVE (Neg); OCCULT BLOOD,URINE NEGATIVE (Neg); PROTEIN,URINE NEGATIVE (Neg); UA COLLECTION TYPE STRAIGHT CATH
[2018-03-17 18:06] LABS: ALANINE AMINOTRANSFERASE 42 U/L (12-78); ALBUMIN 2.4 G/DL (3.4-5.0); ALBUMIN/GLOBULIN RATIO 0.7 (1.1-1.5); ALKALINE PHOSPHATASE 241 IU/L (46-116); ANION GAP 12 (8-16); ASPARTATE AMINO TRANSFERASE 62 U/L (10-37); BILIRUBIN,TOTAL 0.9 MG/DL (0.1-1.0); BLOOD UREA NITROGEN 18 MG/DL (7-18); BUN/CREATININE RATIO 22.5 (6.6-38.0); CALCIUM 8.5 MG/DL (8.5-10.1); CHLORIDE 109 MMOL/L (99-107); GLUCOSE 202 MG/DL (70-104); POTASSIUM 3.7 MMOL/L (3.5-5.1); SODIUM 142 MMOL/L (135-145); TOTAL CARBON DIOXIDE 21.2 MMOL/L (24-32); TOTAL PROTEIN 5.9 G/DL (6.4-8.2); eGFR 71 ML/MIN
[2018-03-17 18:10] LABS: URINE AMPHETAMINE SCREEN NEGATIVE (Neg); URINE BARBITUATE SCREEN NEGATIVE (Neg); URINE BENZODIAZEPINES SCREEN NEGATIVE (Neg); URINE CANNABINOID SCREEN NEGATIVE (Neg); URINE COCAINE SCREEN NEGATIVE (Neg); URINE METHADONE SCREEN NEGATIVE (Neg); URINE OPIATE SCREEN POSITIVE (Neg); URINE PHENCYCLIDINE SCREEN NEGATIVE (Neg)
[2018-03-17 18:15] LABS: ETHANOL < 0.010 GM/DL (0.0-0.010)
[2018-03-18] MEDS ORDERED: CITA-311 PO (19:43)
[2018-03-18] MEDS ORDERED: OLAN2.5T3 PO (19:43)
== END 2018-03-17 19:47 | disposition home or self-care (01) ==
LOC: ER 16:47
DX: F32.9 Major depressive disorder, single episode, unspecified (principal); F41.9 Anxiety disorder, unspecified; R41.0 Disorientation, unspecified; R45.851 Suicidal ideations; I10 Essential (primary) hypertension; I48.91 Unspecified atrial fibrillation; E11.9 Type 2 diabetes mellitus without complications; G89.29 Other chronic pain; Z86.73 Personal history of transient ischemic attack (TIA), and cerebral infarction without residual deficits; Z90.49 Acquired absence of other specified parts of digestive tract; Z90.710 Acquired absence of both cervix and uterus; Z79.4 Long term (current) use of insulin; Z79.84 Long term (current) use of oral hypoglycemic drugs; Z79.899 Other long term (current) drug therapy
CPT/HCPCS: 36415; 74018; 80053; 80305; 80320; 81003; 82948; 84443; 85025; 99285

== ENCOUNTER 2018-04-01 10:24 | Inpatient (IN) | payer MEDICARE, MEDICAID ==
[2018-04-01] VITALS (11 sets, daily range): BP systolic 81–135; BP diastolic 32–73
[~2018-04-01] VITALS: Ht 175.3 cm; Wt 72.0 kg
[~2018-04-01 10:24] MED LIST changes: +CITA-311 PO; +HYDR-4383 PO; -HYDR-569 PO; +OLAN2.5T3 PO
[2018-04-01] MEDS ORDERED: normal saline 1000ML IV soln IVB ONE (10:55)
[2018-04-01 11:15] LABS: BASOPHILS % (AUTO) 0.4 % (0-1); EOSINOPHILS # (AUTO) 0.5 X10'3 (0-0.9); EOSINOPHILS % (AUTO) 7.8 % (0-6); LYMPHOCYTES # (AUTO) 0.9 X10'3 (1.1-4.8); LYMPHOCYTES % (AUTO) 14.8 % (21-51); MEAN CORPUSCULAR HGB CONC 33.1 % (33.0-36.5); MEAN CORPUSCULAR VOLUME 96.8 FL (78-98); MEAN PLATELET VOLUME 9.3 FL (7.4-10.4); MONOCYTES # (AUTO) 0.4 X10'3 (0-0.9); MONOCYTES % (AUTO) 6.4 % (2-12); NEUTROPHILS # (AUTO) 4.1 X10'3 (1.8-7.7); NEUTROPHILS % (AUTO) 70.6 % (42-75); PLATELET COUNT 141 X10'3 (140-440); RED BLOOD COUNT 1.82 X10'6 (4.20-5.60); RED CELL DISTRIBUTION WIDTH 22.3 % (11.5-14.5); WHITE BLOOD COUNT 5.9 X10'3 (4.5-11.0)
[2018-04-01 11:20] LABS: HEMOGLOBIN 5.8 g/dl (12.0-16.0)
[2018-04-01 11:21] LABS: HEMATOCRIT 17.7 % (35.0-45.0)
[2018-04-01 11:34] LABS: PROTHROMBIN TIME 12.8 SECONDS (9.0-12.0)
[2018-04-01 11:35] LABS: INR 1.2 INR; PARTIAL THROMBOPLASTIN TIME 27 SECONDS (22-32)
[2018-04-01 11:37] LABS: PLATELET ESTIMATE NORMAL
[2018-04-01 11:38] LABS: ANISOCYTOSIS 3+; POLYCHROMASIA 2+
[2018-04-01 11:41] LABS: ALANINE AMINOTRANSFERASE 54 U/L (12-78); ALBUMIN 1.7 G/DL (3.4-5.0); ALBUMIN/GLOBULIN RATIO 0.6 (1.1-1.5); ALKALINE PHOSPHATASE 151 IU/L (46-116); ANION GAP 11 (8-16); ASPARTATE AMINO TRANSFERASE 97 U/L (10-37); BILIRUBIN,TOTAL 0.8 MG/DL (0.1-1.0); BLOOD UREA NITROGEN 45 MG/DL (7-18); BUN/CREATININE RATIO 32.4 (6.6-38.0); CALCIUM 7.9 MG/DL (8.5-10.1); CHLORIDE 107 MMOL/L (99-107); CREATININE 1.39 MG/DL (0.40-0.90); GLUCOSE 197 MG/DL (70-104); POTASSIUM 4.1 MMOL/L (3.5-5.1); SODIUM 140 MMOL/L (135-145); TOTAL CARBON DIOXIDE 21.9 MMOL/L (24-32); TOTAL PROTEIN 4.6 G/DL (6.4-8.2); eGFR 37 ML/MIN
[2018-04-01 11:49] LABS: CLARITY,URINE CLEAR (Clear); COLOR,URINE YELLOW (Yellow); GLUCOSE, URINE NEGATIVE (Neg); KETONES,URINE NEGATIVE (Neg); LEUKOCYTE ESTERASE ,URINE NEGATIVE (Neg); NITRITES, URINE NEGATIVE (Neg); OCCULT BLOOD,URINE NEGATIVE (Neg); PROTEIN,URINE NEGATIVE (Neg); UROBILINOGEN,URINE 0.2 E.U/dL (0.2-1.0)
[2018-04-01 11:50] LABS: UA COLLECTION TYPE STRAIGHT CATH
[2018-04-01] MEDS ORDERED: dextrose ORAL solution 15 GM/59 ML bottle PO PRN ×2 (13:45)
[2018-04-01] MEDS ORDERED: dextrose 50%-water 50ml dispensing syringe IV PRN ×2 (13:45)
[2018-04-01] MEDS ORDERED: magnesium 4gm in 100ml NS 100 ML IV PRN (13:45)
[2018-04-01] MEDS ORDERED: MESSAGE TO PHARMACY PO ONE (13:45)
[2018-04-01] MEDS ORDERED: magnesium 1gm/100ml D5W IVPB 100 ML IV PRN (13:45)
[2018-04-01] MEDS ORDERED: ondansetron/PF 4mg/2ml inj IV PRN (13:45)
[2018-04-01] MEDS ORDERED: magnesium Cl slow-release 64mg tablet PO PRN (13:45)
[2018-04-01] MEDS ORDERED: glucagon, human recombinant 1mg kit SUBCUT PRN (13:45)
[2018-04-01] MEDS ORDERED: insulin Lispro (HumaLOG) vial - multi-dose SQ SCH (13:45)
[2018-04-01] MEDS: K and/or MAG REPLACEMENT MC SCH (13:45)
[2018-04-01] MEDS ORDERED: potassium Cl 40MEQ/NS 500ml 500 ML IV PRN ×2 (13:45)
[2018-04-01] MEDS ORDERED: potassium Cl 20 mEq SR tablet PO PRN ×2 (13:45)
[2018-04-01 14:28] LABS: HEMOGLOBIN A1C 6.2 % (4.5-6.2)
[2018-04-01] MEDS: normal saline 1000ml 1,000 ML IV SCH (15:40)
[2018-04-01] MEDS: insulin glargine (Lantus) pen - multi-dose SQ SCH (21:00)
[2018-04-01 23:41] LABS: BASOPHILS % (AUTO) 0.5 % (0-1); EOSINOPHILS # (AUTO) 0.5 X10'3 (0-0.9); EOSINOPHILS % (AUTO) 9.6 % (0-6); HEMATOCRIT 22.6 % (35.0-45.0); HEMOGLOBIN 7.6 g/dl (12.0-16.0); LYMPHOCYTES # (AUTO) 1.2 X10'3 (1.1-4.8); LYMPHOCYTES % (AUTO) 20.4 % (21-51); MEAN CORPUSCULAR HGB CONC 33.5 % (33.0-36.5); MEAN CORPUSCULAR VOLUME 92.6 FL (78-98); MEAN PLATELET VOLUME 9.2 FL (7.4-10.4); MONOCYTES # (AUTO) 0.6 X10'3 (0-0.9); MONOCYTES % (AUTO) 10.2 % (2-12); NEUTROPHILS # (AUTO) 3.4 X10'3 (1.8-7.7); NEUTROPHILS % (AUTO) 59.3 % (42-75); PLATELET COUNT 110 X10'3 (140-440); RED BLOOD COUNT 2.44 X10'6 (4.20-5.60); RED CELL DISTRIBUTION WIDTH 20.4 % (11.5-14.5); WHITE BLOOD COUNT 5.7 X10'3 (4.5-11.0)
[2018-04-02] VITALS (23 sets, daily range): BP systolic 77–118; BP diastolic 32–69
[2018-04-02] MEDS: normal saline 1000ml 1,000 ML IV SCH ×3 (02:02→17:30)
[2018-04-02] MEDS ORDERED: normal saline 500ml IV soln 1,000 ML IV ONE (03:20)
[2018-04-02 03:56] LABS: ALBUMIN 1.6 G/DL (3.4-5.0); ANION GAP 9 (8-16); BLOOD UREA NITROGEN 31 MG/DL (7-18); BUN/CREATININE RATIO 28.7 (6.6-38.0); CALCIUM 7.4 MG/DL (8.5-10.1); CHLORIDE 112 MMOL/L (99-107); CREATININE 1.08 MG/DL (0.40-0.90); GLUCOSE 91 MG/DL (70-104); MAGNESIUM 1.8 MG/DL (1.5-2.4); SODIUM 140 MMOL/L (135-145); TOTAL CARBON DIOXIDE 19.5 MMOL/L (24-32); eGFR 50 ML/MIN
[2018-04-02 03:57] LABS: BASOPHILS % (AUTO) 0.9 % (0-1); EOSINOPHILS # (AUTO) 0.4 X10'3 (0-0.9); EOSINOPHILS % (AUTO) 8.9 % (0-6); HEMATOCRIT 23.4 % (35.0-45.0); HEMOGLOBIN 7.8 g/dl (12.0-16.0); LYMPHOCYTES # (AUTO) 1.1 X10'3 (1.1-4.8); LYMPHOCYTES % (AUTO) 24.1 % (21-51); MEAN CORPUSCULAR HEMOGLOBIN 30.8 PG (27.0-31.0); MEAN CORPUSCULAR HGB CONC 33.5 % (33.0-36.5); MEAN CORPUSCULAR VOLUME 92.2 FL (78-98); MEAN PLATELET VOLUME 9.1 FL (7.4-10.4); MONOCYTES # (AUTO) 0.4 X10'3 (0-0.9); MONOCYTES % (AUTO) 9.5 % (2-12); NEUTROPHILS # (AUTO) 2.7 X10'3 (1.8-7.7); NEUTROPHILS % (AUTO) 56.6 % (42-75); PLATELET COUNT 110 X10'3 (140-440); RED BLOOD COUNT 2.54 X10'6 (4.20-5.60); RED CELL DISTRIBUTION WIDTH 20.4 % (11.5-14.5); WHITE BLOOD COUNT 4.7 X10'3 (4.5-11.0)
[2018-04-02] MEDS: K and/or MAG REPLACEMENT MC SCH (07:26)
[2018-04-02] MEDS ORDERED: MIDAZolam 5mg/5ml vial ONE (12:32)
[2018-04-02] MEDS ORDERED: fentaNYL/PF 50MCG/1 ML 2ML syringe ONE (12:32)
[2018-04-02] MEDS ORDERED: LIDOcaine Viscous 15ml cup ONE (12:32)
[2018-04-02 13:46] LABS: % IRON SATURATION 13 % (11-46); IRON 33 UG/DL (49-151); TOTAL IRON BINDING CAPACITY 251 UG/DL (259-388)
[2018-04-02] MEDS ORDERED: ASPI-611 PO (15:24)
[2018-04-02] MEDS ORDERED: CITA-311 PO (15:24)
[2018-04-02] MEDS ORDERED: DONE10TA37 PO (15:25)
[2018-04-02] MEDS ORDERED: ALBU8.5H8 IH (15:26)
[2018-04-02] MEDS ORDERED: BISA10SU60 RC (15:27)
[2018-04-02] MEDS ORDERED: MAG355OR18 PO (15:28)
[2018-04-02] MEDS ORDERED: GLIM4TAB79 PO (15:29)
[2018-04-02] MEDS ORDERED: PSYL3.4P5 PO (15:29)
[2018-04-02] MEDS ORDERED: SITA50TA PO (15:30)
[2018-04-02] MEDS ORDERED: LACT10SO PO (15:31)
[2018-04-02] MEDS ORDERED: LISI-644 PO (15:31)
[2018-04-02] MEDS ORDERED: LOPE2CAP PO (15:33)
[2018-04-02] MEDS ORDERED: MECL12.584 PO (15:34)
[2018-04-02] MEDS ORDERED: MAGN400O6 PO (15:36)
[2018-04-02] MEDS ORDERED: OMEP20TA23 PO (15:38)
[2018-04-02] MEDS ORDERED: HYDR-4383 PO (15:38)
[2018-04-02] MEDS ORDERED: SIMV40TA PO (15:39)
[2018-04-02] MEDS ORDERED: CHOL100044 PO (15:40)
[2018-04-02] MEDS ORDERED: INSU100V13 SQ (15:41)
[2018-04-02] MEDS ORDERED: OLAN2.5T3 PO (15:43)
[2018-04-02] MEDS ORDERED: ZOSYN 3.373.375 GM/5 IV (15:44)
[2018-04-02] MEDS ORDERED: LACT1CAP65 PO (15:45)
[2018-04-02] MEDS ORDERED: ACET-2119 PO (15:47)
[2018-04-02] MEDS ORDERED: ALBU2.5V12 NEB (15:47)
[2018-04-02] MEDS: pantoprazole 40mg Tablet.DR PO SCH (17:30)
[2018-04-02] MEDS: lisinopril 20mg tablet PO SCH (18:00)
[2018-04-02] MEDS ORDERED: acetaminophen 325mg tablet PO PRN (18:00)
[2018-04-02] MEDS: CITALOpram 10mg tablet PO SCH (22:03)
[2018-04-02] MEDS: insulin glargine (Lantus) pen - multi-dose SQ SCH (22:14)
[2018-04-03] MEDS: normal saline 1000ml 1,000 ML IV SCH ×2 (00:11→11:48)
[2018-04-03 03:00] VITALS: BP 97/52
[2018-04-03 07:37] VITALS: BP 132/44
[2018-04-03] MEDS: lisinopril 20mg tablet PO SCH (08:00)
[2018-04-03] MEDS: K and/or MAG REPLACEMENT MC SCH (08:00)
[2018-04-03] MEDS: pantoprazole 40mg Tablet.DR PO SCH ×2 (08:53→17:00)
[2018-04-03] MEDS: CITALOpram 10mg tablet PO SCH (08:53)
[2018-04-03 11:31] VITALS: BP 119/56
[2018-04-03 14:05] LABS: BASOPHILS % (AUTO) 0.9 % (0-1); EOSINOPHILS # (AUTO) 0.3 X10'3 (0-0.9); EOSINOPHILS % (AUTO) 4.8 % (0-6); HEMATOCRIT 33.7 % (35.0-45.0); HEMOGLOBIN 11.1 g/dl (12.0-16.0); LYMPHOCYTES % (AUTO) 18.6 % (21-51); MEAN CORPUSCULAR HEMOGLOBIN 29.7 PG (27.0-31.0); MEAN CORPUSCULAR HGB CONC 32.9 % (33.0-36.5); MEAN CORPUSCULAR VOLUME 90.2 FL (78-98); MEAN PLATELET VOLUME 9.3 FL (7.4-10.4); MONOCYTES # (AUTO) 0.4 X10'3 (0-0.9); MONOCYTES % (AUTO) 7.3 % (2-12); NEUTROPHILS # (AUTO) 3.5 X10'3 (1.8-7.7); NEUTROPHILS % (AUTO) 68.4 % (42-75); PLATELET COUNT 130 X10'3 (140-440); RED BLOOD COUNT 3.74 X10'6 (4.20-5.60); RED CELL DISTRIBUTION WIDTH 18.9 % (11.5-14.5); WHITE BLOOD COUNT 5.2 X10'3 (4.5-11.0)
[2018-04-03 15:00] VITALS: BP 99/52
[2018-04-03] MEDS ORDERED: PANT40TA4 PO (15:00)
[2018-04-03 17:44] LABS: PLATELET ESTIMATE NORMAL; POLYCHROMASIA 2+
[2018-04-03 17:45] LABS: ANISOCYTOSIS 2+; ELLIPTOCYTES FEW; LARGE PLATELETS FEW; TEAR DROP CELLS FEW
[2018-04-03 17:46] LABS: GIANT PLATELET FEW
== END 2018-04-03 18:42 | DRG 377 ==
LOC: ER 10:24 → ED HOLD 12:21 → PCU 3S 14:15
PROVIDERS: ADMIT Internal Medicine; ATTEND Internal Medicine
PROC: 30233N1 Transfusion of Nonautologous Red Blood Cells into Peripheral Vein, Percutaneous Approach (ICD-10-PCS; 2018-04-01)
PROC: 0DB68ZX Excision of Stomach, Via Natural or Artificial Opening Endoscopic, Diagnostic (ICD-10-PCS; principal; 2018-04-02)
PROC: 30233N1 Transfusion of Nonautologous Red Blood Cells into Peripheral Vein, Percutaneous Approach (ICD-10-PCS; 2018-04-02)
DX: K26.0 Acute duodenal ulcer with hemorrhage (principal); N17.0 Acute kidney failure with tubular necrosis; N39.0 Urinary tract infection, site not specified; K21.0 Gastro-esophageal reflux disease with esophagitis; F41.9 Anxiety disorder, unspecified; I95.9 Hypotension, unspecified; M54.9 Dorsalgia, unspecified; R19.7 Diarrhea, unspecified; K22.11 Ulcer of esophagus with bleeding; K44.9 Diaphragmatic hernia without obstruction or gangrene; Z66 Do not resuscitate; E11.9 Type 2 diabetes mellitus without complications; D50.0 Iron deficiency anemia secondary to blood loss (chronic); E78.5 Hyperlipidemia, unspecified; E86.9 Volume depletion, unspecified; F03.90 Unspecified dementia, unspecified severity, without behavioral disturbance, psychotic disturbance, mood disturbance, and anxiety; F31.9 Bipolar disorder, unspecified; G89.29 Other chronic pain; I10 Essential (primary) hypertension; I48.91 Unspecified atrial fibrillation; Z90.710 Acquired absence of both cervix and uterus; Z91.018 Allergy to other foods; Z79.899 Other long term (current) drug therapy; Z79.4 Long term (current) use of insulin; Z86.73 Personal history of transient ischemic attack (TIA), and cerebral infarction without residual deficits
CPT/HCPCS: 36415; 43239; 71045; 80048; 80053; 81003; 82948; 83036; 83540; 83550; 83605; 83735; 84145; 85025; 85610; 85730; 86885; 86900; 86901; 86920; 87040; 87070; 88305; 93005; 96360; 99152; 99285; A4620; J1815; J2250; J3010; J7030; P9016

== ENCOUNTER 2018-04-14 07:59 | Day surgery (SDC) | payer MEDICARE, MEDICAID ==
[~2018-04-14] VITALS: Ht 177.8 cm; Wt 88.1 kg
[~2018-04-14 07:59] MED LIST changes: +ACET-2119 PO; +ALBU2.5V12 NEB; +ASPI-611 PO; +BISA10SU60 RC; -BUPR300T54 PO; -CHOL10002 PO; +CHOL100044 PO; -CYCL-394 PO; +DONE10TA37 PO; -FAMO20TA8 PO; -FLUO20CA39 PO; +INSU100V13 SQ; +LACT10SO PO; +LACT1CAP65 PO; +LIDOcaine 1% 30ml preserv. free vial SQ STA; +LOPE2CAP PO; +MAG355OR18 PO; +MAGN400O6 PO; -METF-516 PO; -NOVLG SUBCUT; -OMEP20TA5 PO; +PANT40TA4 PO; +PSYL3.4P5 PO; -SERT25TA5 PO; +SIMV40TA PO; -SIMV40TA4 PO; +SITA50TA PO; -SITA50TA7 PO; +ZOSYN 3.373.375 GM/5 IV
[2018-04-14 08:39] VITALS: BP 96/64
[2018-04-14 08:55] VITALS: BP 101/57
[2018-04-14] MEDS ORDERED: normal saline 1000ml 1,000 ML IV PRN (08:55)
[2018-04-14] MEDS ORDERED: albumin (human) 25% 100 ML IV solution IV PRN (08:55)
[2018-04-14 09:00] VITALS: BP 105/59
[2018-04-14 09:05] VITALS: BP 106/57
[2018-04-14 09:15] VITALS: BP 107/55
[2018-04-14 09:20] VITALS: BP 109/60
[2018-04-14] MEDS ORDERED: PANT40TA4 PO (09:23)
== END 2018-04-14 09:30 | disposition home or self-care (01) ==
LOC: SSTAY O 07:59
PROVIDERS: ATTEND Radiology Vascular & Interventional Radiology
DX: R18.8 Other ascites (principal); K74.69 Other cirrhosis of liver; E11.9 Type 2 diabetes mellitus without complications; I10 Essential (primary) hypertension; J44.9 Chronic obstructive pulmonary disease, unspecified; F32.9 Major depressive disorder, single episode, unspecified; K21.0 Gastro-esophageal reflux disease with esophagitis; I48.91 Unspecified atrial fibrillation; F41.8 Other specified anxiety disorders; F03.90 Unspecified dementia, unspecified severity, without behavioral disturbance, psychotic disturbance, mood disturbance, and anxiety; Z79.891 Long term (current) use of opiate analgesic; Z79.82 Long term (current) use of aspirin; Z79.2 Long term (current) use of antibiotics; Z79.4 Long term (current) use of insulin; Z90.710 Acquired absence of both cervix and uterus; Z86.73 Personal history of transient ischemic attack (TIA), and cerebral infarction without residual deficits; Z86.79 Personal history of other diseases of the circulatory system; Z87.891 Personal history of nicotine dependence; Z90.49 Acquired absence of other specified parts of digestive tract; Z87.440 Personal history of urinary (tract) infections; Z91.018 Allergy to other foods; Z86.19 Personal history of other infectious and parasitic diseases; Z98.890 Other specified postprocedural states; Z79.899 Other long term (current) drug therapy
CPT/HCPCS: 49083; J3490; J7030

== ENCOUNTER 2018-04-30 21:27 | Inpatient (IN) | payer MEDICARE, MEDICAID ==
[~2018-04-30] VITALS: Ht 177.8 cm; Wt 77.0 kg
[~2018-04-30 21:27] MED LIST changes: -LIDOcaine 1% 30ml preserv. free vial SQ STA; -ZOSYN 3.373.375 GM/5 IV
[2018-04-30 22:27] LABS: OCCULT BLOOD STOOL POSITIVE (Neg)
[2018-04-30 22:28] LABS: BASOPHILS % (AUTO) 0.6 % (0-1); EOSINOPHILS # (AUTO) 0.5 X10'3 (0-0.9); EOSINOPHILS % (AUTO) 6.9 % (0-6); HEMATOCRIT 23.6 % (35.0-45.0); HEMOGLOBIN 7.6 g/dl (12.0-16.0); LYMPHOCYTES # (AUTO) 1.7 X10'3 (1.1-4.8); LYMPHOCYTES % (AUTO) 25.3 % (21-51); MEAN CORPUSCULAR HGB CONC 32.3 % (33.0-36.5); MEAN CORPUSCULAR VOLUME 89.9 FL (78-98); MEAN PLATELET VOLUME 8.4 FL (7.4-10.4); MONOCYTES # (AUTO) 0.5 X10'3 (0-0.9); MONOCYTES % (AUTO) 7.6 % (2-12); NEUTROPHILS # (AUTO) 3.9 X10'3 (1.8-7.7); NEUTROPHILS % (AUTO) 59.6 % (42-75); PLATELET COUNT 173 X10'3 (140-440); RED BLOOD COUNT 2.62 X10'6 (4.20-5.60); RED CELL DISTRIBUTION WIDTH 20.6 % (11.5-14.5); WHITE BLOOD COUNT 6.6 X10'3 (4.5-11.0)
[2018-04-30 22:42] LABS: ALANINE AMINOTRANSFERASE 21 U/L (12-78); ALBUMIN 1.7 G/DL (3.4-5.0); ALBUMIN/GLOBULIN RATIO 0.5 (1.1-1.5); ALKALINE PHOSPHATASE 125 IU/L (46-116); ANION GAP 10 (8-16); ASPARTATE AMINO TRANSFERASE 35 U/L (10-37); BLOOD UREA NITROGEN 35 MG/DL (7-18); BUN/CREATININE RATIO 34.7 (6.6-38.0); CALCIUM 8.5 MG/DL (8.5-10.1); CHLORIDE 110 MMOL/L (99-107); CREATININE 1.01 MG/DL (0.40-0.90); GLUCOSE 80 MG/DL (70-104); POTASSIUM 4.3 MMOL/L (3.5-5.1); SODIUM 142 MMOL/L (135-145); TOTAL CARBON DIOXIDE 22.1 MMOL/L (24-32); TOTAL PROTEIN 5.1 G/DL (6.4-8.2); eGFR 54 ML/MIN
[2018-04-30 22:45] LABS: INR 1.5 INR; PARTIAL THROMBOPLASTIN TIME 29 SECONDS (22-32); PROTHROMBIN TIME 14.6 SECONDS (9.0-12.0)
[2018-04-30] MEDS ORDERED: iohexol 300mg/ml 100ml inj. ONE (22:47)
[2018-04-30 23:23] LABS: PLATELET ESTIMATE NORMAL; POLYCHROMASIA 2+
[2018-04-30 23:24] LABS: ANISOCYTOSIS 3+; ELLIPTOCYTES FEW; GIANT PLATELET FEW; LARGE PLATELETS FEW; TEAR DROP CELLS FEW
[2018-04-30] MEDS ORDERED: pantoprazole 40 MG vial IV ONE (23:25)
[2018-05-01] VITALS (28 sets, daily range): BP systolic 97–130; BP diastolic 31–76
[2018-05-01] MEDS ORDERED: acetaminophen 325mg tablet PO PRN ×2 (00:10)
[2018-05-01] MEDS ORDERED: ondansetron/PF 4mg/2ml inj IV PRN (00:10)
[2018-05-01] MEDS ORDERED: mag hydrox/Alum hydrox/simeth 30ml oral suspension PO PRN (00:10)
[2018-05-01] MEDS ORDERED: HYDROcodone/acetaminophen 10/325mg tab PO PRN (00:10)
[2018-05-01] MEDS ORDERED: magnesium hydroxide 30ml (MOM) UD suspension PO PRN ×2 (00:10→00:15)
[2018-05-01 00:12] LABS: CLARITY,URINE CLEAR (Clear); COLOR,URINE YELLOW (Yellow); GLUCOSE, URINE NEGATIVE (Neg); KETONES,URINE 15 mg/dl (Neg); LEUKOCYTE ESTERASE ,URINE TRACE (Neg); NITRITES, URINE NEGATIVE (Neg); OCCULT BLOOD,URINE NEGATIVE (Neg); PH,URINE 5.5 (4.8-8.0); PROTEIN,URINE NEGATIVE (Neg); UROBILINOGEN,URINE 0.2 E.U/dL (0.2-1.0)
[2018-05-01 00:13] LABS: UA COLLECTION TYPE STRAIGHT CATH
[2018-05-01] MEDS ORDERED: non-formulary drug (Albuterol Sulfate (Proair Hfa) 2 PUFFS) IH PRN (00:15)
[2018-05-01] MEDS ORDERED: albuterol 2.5 MG/3 ML nebule NEB PRN (00:15)
[2018-05-01 00:25] LABS: MUCUS STRANDS FEW /LPF (Neg); SQUAMOUS EPITHELIAL CELL,UR MODERATE /LPF (FEW)
[2018-05-01 00:26] LABS: BACTERIA,URINE FEW /HPF (Neg); RBC,URINE 0-2 /HPF (0-2); WBC CLUMPS,URINE FEW /HPF (NEGATIVE)
[2018-05-01] MEDS: lactulose 20gm/30ml cup PO SCH ×3 (08:00→21:00)
[2018-05-01] MEDS ORDERED: pantoprazole 40mg Tablet.DR PO SCH (08:00)
[2018-05-01] MEDS: aspirin 81mg tablet.DR PO SCH (08:00)
[2018-05-01] MEDS: psyllium seed 3.4 gm packet PO SCH (08:00)
[2018-05-01] MEDS: lisinopril 20mg tablet PO SCH (08:00)
[2018-05-01] MEDS: OLANZapine 2.5MG tablet PO SCH ×2 (08:22→21:47)
[2018-05-01] MEDS: CITALOpram 10mg tablet PO SCH (08:22)
[2018-05-01] MEDS: lactobacillus rhamnosus 10,000 MMU CELLS/CAPSULE PO SCH ×2 (08:22→21:46)
[2018-05-01] MEDS: vitamin D (cholecalciferol) 1,000 unit tablet PO SCH (08:22)
[2018-05-01] MEDS: pantoprazole 40 MG vial IV SCH ×2 (08:22→20:03)
[2018-05-01 10:22] LABS: C DIFF ANTIGEN NEGATIVE (NEGATIVE); C DIFF SPECIMEN=DIARRHEA? ACCEPTABLE; C DIFFICILE TOXINS A&B NEGATIVE (Neg)
[2018-05-01] MEDS: HYDROcodone/acetaminophen 5mg/325mg tablet PO PRN (13:35)
[2018-05-01 14:27] LABS: BASOPHILS % (AUTO) 0.4 % (0-1); EOSINOPHILS # (AUTO) 0.3 X10'3 (0-0.9); EOSINOPHILS % (AUTO) 6.4 % (0-6); HEMATOCRIT 25.7 % (35.0-45.0); HEMOGLOBIN 8.4 g/dl (12.0-16.0); LYMPHOCYTES # (AUTO) 1.4 X10'3 (1.1-4.8); LYMPHOCYTES % (AUTO) 28.6 % (21-51); MEAN CORPUSCULAR HEMOGLOBIN 29.3 PG (27.0-31.0); MEAN CORPUSCULAR HGB CONC 32.8 % (33.0-36.5); MEAN CORPUSCULAR VOLUME 89.4 FL (78-98); MEAN PLATELET VOLUME 8.8 FL (7.4-10.4); MONOCYTES # (AUTO) 0.4 X10'3 (0-0.9); MONOCYTES % (AUTO) 8.6 % (2-12); NEUTROPHILS # (AUTO) 2.8 X10'3 (1.8-7.7); PLATELET COUNT 139 X10'3 (140-440); RED BLOOD COUNT 2.88 X10'6 (4.20-5.60); RED CELL DISTRIBUTION WIDTH 17.8 % (11.5-14.5)
[2018-05-01] MEDS ORDERED: fentaNYL/PF 50MCG/1 ML 2ML syringe ONE (16:16)
[2018-05-01] MEDS ORDERED: LIDOcaine Viscous 15ml cup ONE (16:16)
[2018-05-01] MEDS ORDERED: MIDAZolam 5mg/5ml vial ONE (16:16)
[2018-05-01] MEDS: atorvastatin 20mg tablet PO SCH (21:47)
[2018-05-01] MEDS: donepezil 5mg tablet PO SCH (21:47)
[2018-05-02] VITALS: BP 102/40
[2018-05-02 04:48] LABS: BASOPHILS % (AUTO) 0.3 % (0-1); EOSINOPHILS # (AUTO) 0.2 X10'3 (0-0.9); HEMATOCRIT 22.4 % (35.0-45.0); HEMOGLOBIN 7.3 g/dl (12.0-16.0); LYMPHOCYTES # (AUTO) 0.9 X10'3 (1.1-4.8); MEAN CORPUSCULAR HEMOGLOBIN 29.3 PG (27.0-31.0); MEAN CORPUSCULAR HGB CONC 32.6 % (33.0-36.5); MEAN CORPUSCULAR VOLUME 89.6 FL (78-98); MEAN PLATELET VOLUME 8.9 FL (7.4-10.4); MONOCYTES # (AUTO) 0.3 X10'3 (0-0.9); MONOCYTES % (AUTO) 9.6 % (2-12); NEUTROPHILS # (AUTO) 1.9 X10'3 (1.8-7.7); NEUTROPHILS % (AUTO) 57.1 % (42-75); PLATELET COUNT 115 X10'3 (140-440); RED CELL DISTRIBUTION WIDTH 17.7 % (11.5-14.5); WHITE BLOOD COUNT 3.3 X10'3 (4.5-11.0)
[2018-05-02 05:04] LABS: ALBUMIN 1.4 G/DL (3.4-5.0); BLOOD UREA NITROGEN 38 MG/DL (7-18); CHLORIDE 112 MMOL/L (99-107); GLUCOSE 71 MG/DL (70-104); POTASSIUM 3.8 MMOL/L (3.5-5.1); SODIUM 143 MMOL/L (135-145)
[2018-05-02 05:22] LABS: ANION GAP 7 (8-16); BUN/CREATININE RATIO 42.2 (6.6-38.0); TOTAL CARBON DIOXIDE 24.3 MMOL/L (24-32); eGFR 62 ML/MIN
[2018-05-02 07:12] VITALS: BP 109/65
[2018-05-02] MEDS: lactulose 20gm/30ml cup PO SCH ×3 (08:00→20:42)
[2018-05-02] MEDS: lisinopril 20mg tablet PO SCH (08:00)
[2018-05-02] MEDS: psyllium seed 3.4 gm packet PO SCH (08:00)
[2018-05-02] MEDS: aspirin 81mg tablet.DR PO SCH (08:00)
[2018-05-02] MEDS: pantoprazole 40 MG vial IV SCH ×2 (09:11→20:47)
[2018-05-02] MEDS: CITALOpram 10mg tablet PO SCH (09:11)
[2018-05-02] MEDS: lactobacillus rhamnosus 10,000 MMU CELLS/CAPSULE PO SCH ×2 (09:12→20:47)
[2018-05-02] MEDS: OLANZapine 2.5MG tablet PO SCH ×2 (09:13→20:47)
[2018-05-02] MEDS: vitamin D (cholecalciferol) 1,000 unit tablet PO SCH (09:13)
[2018-05-02 11:30] VITALS: BP_SYST 101; BP_DIAS 34; BP_DIAS 44
[2018-05-02 14:02] LABS: HEMATOCRIT 24.5 % (35.0-45.0); MEAN CORPUSCULAR HEMOGLOBIN 29.5 PG (27.0-31.0); MEAN CORPUSCULAR HGB CONC 32.7 % (33.0-36.5); MEAN PLATELET VOLUME 8.7 FL (7.4-10.4); PLATELET COUNT 124 X10'3 (140-440); RED BLOOD COUNT 2.73 X10'6 (4.20-5.60); RED CELL DISTRIBUTION WIDTH 18.4 % (11.5-14.5); WHITE BLOOD COUNT 3.2 X10'3 (4.5-11.0)
[2018-05-02 18:00] VITALS: BP 124/54
[2018-05-02] MEDS: donepezil 5mg tablet PO SCH (20:47)
[2018-05-02] MEDS: atorvastatin 20mg tablet PO SCH (20:47)
[2018-05-03] VITALS: BP 115/41
[2018-05-03 05:32] LABS: BASOPHILS % (AUTO) 0.1 % (0-1); EOSINOPHILS # (AUTO) 0.2 X10'3 (0-0.9); EOSINOPHILS % (AUTO) 5.8 % (0-6); HEMATOCRIT 23.2 % (35.0-45.0); HEMOGLOBIN 7.7 g/dl (12.0-16.0); LYMPHOCYTES % (AUTO) 36.5 % (21-51); MEAN CORPUSCULAR HEMOGLOBIN 29.8 PG (27.0-31.0); MEAN CORPUSCULAR HGB CONC 33.1 % (33.0-36.5); MEAN CORPUSCULAR VOLUME 90.1 FL (78-98); MEAN PLATELET VOLUME 8.9 FL (7.4-10.4); MONOCYTES # (AUTO) 0.3 X10'3 (0-0.9); MONOCYTES % (AUTO) 9.7 % (2-12); NEUTROPHILS # (AUTO) 1.3 X10'3 (1.8-7.7); NEUTROPHILS % (AUTO) 47.9 % (42-75); PLATELET COUNT 111 X10'3 (140-440); RED BLOOD COUNT 2.58 X10'6 (4.20-5.60); WHITE BLOOD COUNT 2.7 X10'3 (4.5-11.0)
[2018-05-03 06:07] LABS: ALBUMIN 1.5 G/DL (3.4-5.0); ANION GAP 9 (8-16); BLOOD UREA NITROGEN 30 MG/DL (7-18); BUN/CREATININE RATIO 33.3 (6.6-38.0); CHLORIDE 111 MMOL/L (99-107); GLUCOSE 98 MG/DL (70-104); POTASSIUM 3.6 MMOL/L (3.5-5.1); SODIUM 143 MMOL/L (135-145); TOTAL CARBON DIOXIDE 23.5 MMOL/L (24-32); eGFR 62 ML/MIN
[2018-05-03 07:20] VITALS: BP 114/63
[2018-05-03 07:32] LABS: TOTAL CELLS COUNTED 100
[2018-05-03 07:33] LABS: ANISOCYTOSIS 2+; HYPOCHROMASIA 1+; PLATELET ESTIMATE DECREASED; POLYCHROMASIA 1+; SMUDGE CELLS FEW
[2018-05-03] MEDS: psyllium seed 3.4 gm packet PO SCH (08:00)
[2018-05-03] MEDS: lactulose 20gm/30ml cup PO SCH ×3 (08:00→20:33)
[2018-05-03] MEDS: CITALOpram 10mg tablet PO SCH (08:35)
[2018-05-03] MEDS: vitamin D (cholecalciferol) 1,000 unit tablet PO SCH (08:36)
[2018-05-03] MEDS: OLANZapine 2.5MG tablet PO SCH ×2 (08:36→20:32)
[2018-05-03] MEDS: lisinopril 20mg tablet PO SCH (08:36)
[2018-05-03] MEDS: aspirin 81mg tablet.DR PO SCH (08:36)
[2018-05-03] MEDS: pantoprazole 40 MG vial IV SCH ×2 (08:37→20:26)
[2018-05-03] MEDS: lactobacillus rhamnosus 10,000 MMU CELLS/CAPSULE PO SCH ×2 (08:37→20:32)
[2018-05-03 13:16] VITALS: BP 113/75
[2018-05-03 20:00] VITALS: BP 95/45
[2018-05-03] MEDS: atorvastatin 20mg tablet PO SCH (20:32)
[2018-05-03] MEDS: donepezil 5mg tablet PO SCH (20:33)
[2018-05-04] VITALS (10 sets, daily range): BP systolic 75–124; BP diastolic 35–59
[2018-05-04] MEDS ORDERED: normal saline 1000ml 1,000 ML IV ONE (00:20)
[2018-05-04] MEDS: normal saline 1000ml 1,000 ML IV SCH ×2 (01:29→16:35)
[2018-05-04] MEDS: HYDROcodone/acetaminophen 5mg/325mg tablet PO PRN (02:21)
[2018-05-04 05:15] LABS: BASOPHILS % (AUTO) 0.2 % (0-1); EOSINOPHILS # (AUTO) 0.2 X10'3 (0-0.9); EOSINOPHILS % (AUTO) 5.9 % (0-6); HEMOGLOBIN 7.2 g/dl (12.0-16.0); LYMPHOCYTES % (AUTO) 37.4 % (21-51); MEAN CORPUSCULAR HEMOGLOBIN 29.6 PG (27.0-31.0); MEAN CORPUSCULAR HGB CONC 32.8 % (33.0-36.5); MEAN CORPUSCULAR VOLUME 90.5 FL (78-98); MEAN PLATELET VOLUME 9.5 FL (7.4-10.4); MONOCYTES # (AUTO) 0.3 X10'3 (0-0.9); MONOCYTES % (AUTO) 10.6 % (2-12); NEUTROPHILS # (AUTO) 1.3 X10'3 (1.8-7.7); NEUTROPHILS % (AUTO) 45.9 % (42-75); PLATELET COUNT 102 X10'3 (140-440); RED BLOOD COUNT 2.44 X10'6 (4.20-5.60); RED CELL DISTRIBUTION WIDTH 18.2 % (11.5-14.5); WHITE BLOOD COUNT 2.7 X10'3 (4.5-11.0)
[2018-05-04 05:54] LABS: ANISOCYTOSIS 2+; PLATELET ESTIMATE DECREASED; TOTAL CELLS COUNTED 100
[2018-05-04 05:55] LABS: HYPOCHROMASIA 1+; POLYCHROMASIA 1+; SMUDGE CELLS FEW
[2018-05-04 06:18] LABS: ALBUMIN 1.4 G/DL (3.4-5.0); ANION GAP 8 (8-16); BLOOD UREA NITROGEN 28 MG/DL (7-18); BUN/CREATININE RATIO 28.6 (6.6-38.0); CALCIUM 7.7 MG/DL (8.5-10.1); CHLORIDE 111 MMOL/L (99-107); CREATININE 0.98 MG/DL (0.40-0.90); GLUCOSE 102 MG/DL (70-104); POTASSIUM 3.6 MMOL/L (3.5-5.1); SODIUM 141 MMOL/L (135-145); eGFR 56 ML/MIN
[2018-05-04] MEDS ORDERED: linagliptin 5mg tablet PO SCH (08:00)
[2018-05-04] MEDS: lisinopril 20mg tablet PO SCH (08:00)
[2018-05-04] MEDS: lactulose 20gm/30ml cup PO SCH ×3 (08:00→20:58)
[2018-05-04] MEDS ORDERED: acetaminophen 325mg tablet PO ONE (08:05)
[2018-05-04] MEDS: OLANZapine 2.5MG tablet PO SCH ×2 (09:10→20:57)
[2018-05-04] MEDS: lactobacillus rhamnosus 10,000 MMU CELLS/CAPSULE PO SCH ×2 (09:10→20:56)
[2018-05-04] MEDS: vitamin D (cholecalciferol) 1,000 unit tablet PO SCH (09:10)
[2018-05-04] MEDS: pantoprazole 40 MG vial IV SCH (09:10)
[2018-05-04] MEDS: psyllium seed 3.4 gm packet PO SCH (09:11)
[2018-05-04] MEDS: CITALOpram 10mg tablet PO SCH (09:26)
[2018-05-04] MEDS: linagliptin 5mg tablet PO SCH (09:26)
[2018-05-04] MEDS ORDERED: furosemide 40mg/4ml inj IV ONE (10:05)
[2018-05-04] MEDS: atorvastatin 20mg tablet PO SCH (20:57)
[2018-05-04] MEDS: pantoprazole 40mg Tablet.DR PO SCH (20:57)
[2018-05-04] MEDS: donepezil 5mg tablet PO SCH (20:57)
[2018-05-04] MEDS: nystatin 15 GM powder TP SCH (20:58)
[2018-05-05] VITALS: BP 105/98
[2018-05-05 05:46] LABS: BASOPHILS % (AUTO) 0.7 % (0-1); EOSINOPHILS # (AUTO) 0.2 X10'3 (0-0.9); EOSINOPHILS % (AUTO) 6.9 % (0-6); HEMATOCRIT 31.3 % (35.0-45.0); HEMOGLOBIN 10.4 g/dl (12.0-16.0); LYMPHOCYTES # (AUTO) 0.8 X10'3 (1.1-4.8); LYMPHOCYTES % (AUTO) 28.6 % (21-51); MEAN CORPUSCULAR HEMOGLOBIN 30.3 PG (27.0-31.0); MEAN CORPUSCULAR HGB CONC 33.2 % (33.0-36.5); MEAN CORPUSCULAR VOLUME 91.2 FL (78-98); MEAN PLATELET VOLUME 9.4 FL (7.4-10.4); MONOCYTES # (AUTO) 0.3 X10'3 (0-0.9); MONOCYTES % (AUTO) 10.6 % (2-12); NEUTROPHILS # (AUTO) 1.4 X10'3 (1.8-7.7); NEUTROPHILS % (AUTO) 53.2 % (42-75); PLATELET COUNT 107 X10'3 (140-440); RED BLOOD COUNT 3.43 X10'6 (4.20-5.60); RED CELL DISTRIBUTION WIDTH 18.1 % (11.5-14.5); WHITE BLOOD COUNT 2.6 X10'3 (4.5-11.0)
[2018-05-05] MEDS: normal saline 1000ml 1,000 ML IV SCH (05:46)
[2018-05-05 06:02] LABS: ALBUMIN 1.6 G/DL (3.4-5.0); ANION GAP 9 (8-16); BLOOD UREA NITROGEN 20 MG/DL (7-18); BUN/CREATININE RATIO 23.5 (6.6-38.0); CALCIUM 7.8 MG/DL (8.5-10.1); CHLORIDE 113 MMOL/L (99-107); CREATININE 0.85 MG/DL (0.40-0.90); GLUCOSE 97 MG/DL (70-104); POTASSIUM 3.9 MMOL/L (3.5-5.1); SODIUM 144 MMOL/L (135-145); TOTAL CARBON DIOXIDE 21.8 MMOL/L (24-32); eGFR 66 ML/MIN
[2018-05-05 06:36] LABS: ANISOCYTOSIS 2+; LARGE PLATELETS FEW; TOTAL CELLS COUNTED 100
[2018-05-05 06:37] LABS: PLATELET ESTIMATE DECREASED
[2018-05-05 07:30] VITALS: BP 136/49
[2018-05-05 07:50] VITALS: BP 102/32
[2018-05-05] MEDS ORDERED: loratadine 10mg tablet PO SCH (08:00)
[2018-05-05] MEDS: lactulose 20gm/30ml cup PO SCH ×2 (08:00→13:07)
[2018-05-05] MEDS: lisinopril 20mg tablet PO SCH (08:00)
[2018-05-05] MEDS: CITALOpram 10mg tablet PO SCH (08:01)
[2018-05-05] MEDS: pantoprazole 40mg Tablet.DR PO SCH (08:02)
[2018-05-05] MEDS: lactobacillus rhamnosus 10,000 MMU CELLS/CAPSULE PO SCH (08:02)
[2018-05-05] MEDS: psyllium seed 3.4 gm packet PO SCH (08:02)
[2018-05-05] MEDS: OLANZapine 2.5MG tablet PO SCH (08:10)
[2018-05-05] MEDS: nystatin 15 GM powder TP SCH (08:10)
[2018-05-05] MEDS: vitamin D (cholecalciferol) 1,000 unit tablet PO SCH (08:10)
[2018-05-05] MEDS: linagliptin 5mg tablet PO SCH (08:10)
[2018-05-05 11:28] VITALS: BP 103/44
== END 2018-05-05 15:30 | DRG 377 ==
LOC: ER 21:28 → ED HOLD 05-01 00:09 → SUR 3N 05-01 02:30
PROVIDERS: ADMIT Hospitalist; ATTEND Family Medicine
PROC: BW211ZZ Computerized Tomography (CT Scan) of Abdomen and Pelvis using Low Osmolar Contrast (ICD-10-PCS; 2018-04-30)
PROC: 0DJ08ZZ Inspection of Upper Intestinal Tract, Via Natural or Artificial Opening Endoscopic (ICD-10-PCS; principal; 2018-05-01)
PROC: 30233N1 Transfusion of Nonautologous Red Blood Cells into Peripheral Vein, Percutaneous Approach (ICD-10-PCS; 2018-05-01)
PROC: 30233N1 Transfusion of Nonautologous Red Blood Cells into Peripheral Vein, Percutaneous Approach (ICD-10-PCS; 2018-05-04)
DX: K26.4 Chronic or unspecified duodenal ulcer with hemorrhage (principal); E43 Unspecified severe protein-calorie malnutrition; N17.0 Acute kidney failure with tubular necrosis; D62 Acute posthemorrhagic anemia; K76.6 Portal hypertension; K22.10 Ulcer of esophagus without bleeding; K20.9 Esophagitis, unspecified; E11.22 Type 2 diabetes mellitus with diabetic chronic kidney disease; F03.90 Unspecified dementia, unspecified severity, without behavioral disturbance, psychotic disturbance, mood disturbance, and anxiety; F32.9 Major depressive disorder, single episode, unspecified; K44.9 Diaphragmatic hernia without obstruction or gangrene; K29.70 Gastritis, unspecified, without bleeding; K29.80 Duodenitis without bleeding; G89.29 Other chronic pain; I12.9 Hypertensive chronic kidney disease with stage 1 through stage 4 chronic kidney disease, or unspecified chronic kidney disease; K22.8 Other specified diseases of esophagus; I48.91 Unspecified atrial fibrillation; B19.20 Unspecified viral hepatitis C without hepatic coma; M54.9 Dorsalgia, unspecified; N18.9 Chronic kidney disease, unspecified; Z66 Do not resuscitate; Z90.49 Acquired absence of other specified parts of digestive tract; Z90.710 Acquired absence of both cervix and uterus; Z91.048 Other nonmedicinal substance allergy status; Z79.899 Other long term (current) drug therapy; Z86.73 Personal history of transient ischemic attack (TIA), and cerebral infarction without residual deficits; Z87.440 Personal history of urinary (tract) infections; Z68.24 Body mass index [BMI] 24.0-24.9, adult
CPT/HCPCS: 36415; 71045; 74177; 80048; 80053; 81001; 81003; 82272; 83036; 85025; 85027; 85610; 85730; 86885; 86900; 86901; 86920; 87070; 87088; 87324; 87449; 93005; 94760; 96374; 99152; 99285; A4620; C9113; G0378; J2250; J3010; J7030; P9016; Q9967

== ENCOUNTER 2018-08-08 06:51 | Day surgery (SDC) | payer MEDICARE, MEDICAID ==
[2018-08-08] VITALS (13 sets, daily range): BP systolic 110–131; BP diastolic 46–67
[~2018-08-08] VITALS: Ht 175.3 cm; Wt 83.4 kg
[~2018-08-08 06:51] MED LIST changes: +LIDOcaine 1% 30ml preserv. free vial SQ STA
[2018-08-08] MEDS ORDERED: ATOR20TA66 PO (07:37)
[2018-08-08] MEDS ORDERED: albumin 25% 50mL bottle X 2 BOTTLES IV PRN (07:50)
[2018-08-08] MEDS ORDERED: normal saline 1000ml 1,000 ML IV PRN (07:50)
== END 2018-08-08 11:05 | disposition home or self-care (01) ==
LOC: SSTAY O 06:51
PROVIDERS: ATTEND Radiology Vascular & Interventional Radiology
DX: R18.8 Other ascites (principal); K74.60 Unspecified cirrhosis of liver; I10 Essential (primary) hypertension; J44.9 Chronic obstructive pulmonary disease, unspecified; D64.9 Anemia, unspecified; F32.9 Major depressive disorder, single episode, unspecified; K21.9 Gastro-esophageal reflux disease without esophagitis; E11.9 Type 2 diabetes mellitus without complications; F03.90 Unspecified dementia, unspecified severity, without behavioral disturbance, psychotic disturbance, mood disturbance, and anxiety; Z90.710 Acquired absence of both cervix and uterus; Z98.890 Other specified postprocedural states; Z79.4 Long term (current) use of insulin; Z79.899 Other long term (current) drug therapy; Z91.018 Allergy to other foods
CPT/HCPCS: 49083; C1729; J3490; J7030; P9047; 88108; 88305

== ENCOUNTER 2018-08-22 08:30 | Day surgery (SDC) | payer MEDICARE, MEDICAID ==
[~2018-08-22] VITALS: Ht 177.8 cm; Wt 83.7 kg
[~2018-08-22 08:30] MED LIST changes: -ASPI-611 PO; +ATOR20TA66 PO; -GLIM4TAB79 PO; -SIMV40TA PO; -SITA50TA PO
[2018-08-22 08:54] VITALS: BP 106/57
[2018-08-22] MEDS ORDERED: albumin 25% 50mL bottle X 2 BOTTLES IV ONE (09:00)
[2018-08-22 09:10] VITALS: BP 96/53
[2018-08-22 09:25] VITALS: BP 112/62
[2018-08-22 09:40] VITALS: BP 116/59
[2018-08-22 09:55] VITALS: BP 123/50
[2018-08-22 10:20] VITALS: BP 139/60
== END 2018-08-22 10:20 ==
LOC: SSTAY O 08:30
PROVIDERS: ATTEND Radiology Diagnostic Radiology
DX: R18.8 Other ascites (principal); K74.60 Unspecified cirrhosis of liver; I10 Essential (primary) hypertension; K21.9 Gastro-esophageal reflux disease without esophagitis; J44.9 Chronic obstructive pulmonary disease, unspecified; F03.90 Unspecified dementia, unspecified severity, without behavioral disturbance, psychotic disturbance, mood disturbance, and anxiety; F32.9 Major depressive disorder, single episode, unspecified; D64.9 Anemia, unspecified; K73.9 Chronic hepatitis, unspecified; Z88.8 Allergy status to other drugs, medicaments and biological substances; Z79.899 Other long term (current) drug therapy; Z90.710 Acquired absence of both cervix and uterus; Z98.890 Other specified postprocedural states
CPT/HCPCS: 49083; C1729; J3490

== ENCOUNTER 2018-09-01 06:32 | Day surgery (SDC) | payer MEDICARE, MEDICAID ==
[~2018-09-01] VITALS: Ht 177.8 cm; Wt 80.0 kg
[2018-09-01] MEDS ORDERED: albumin 25% 50mL bottle X 2 BOTTLES IV ONE (07:05)
[2018-09-01] MEDS ORDERED: normal saline 1000ml 1,000 ML IV PRN (07:05)
[2018-09-01 07:06] VITALS: BP 118/50
[2018-09-01 08:22] VITALS: BP 126/51
[2018-09-01 08:30] VITALS: BP 139/55
[2018-09-01 08:45] VITALS: BP 125/49
[2018-09-01 09:00] VITALS: BP 131/54
== END 2018-09-01 11:10 | disposition home or self-care (01) ==
LOC: SSTAY O 06:32
PROVIDERS: ATTEND Radiology Vascular & Interventional Radiology
DX: R18.8 Other ascites (principal); K74.60 Unspecified cirrhosis of liver; I10 Essential (primary) hypertension; J44.9 Chronic obstructive pulmonary disease, unspecified; F03.90 Unspecified dementia, unspecified severity, without behavioral disturbance, psychotic disturbance, mood disturbance, and anxiety; F32.9 Major depressive disorder, single episode, unspecified; D64.9 Anemia, unspecified; K21.9 Gastro-esophageal reflux disease without esophagitis; K73.9 Chronic hepatitis, unspecified; E11.9 Type 2 diabetes mellitus without complications; Z98.890 Other specified postprocedural states; Z90.710 Acquired absence of both cervix and uterus; Z79.899 Other long term (current) drug therapy
CPT/HCPCS: 49083; C1729; J3490; J7030

== ENCOUNTER 2018-09-18 08:04 | Day surgery (SDC) | payer MEDICARE, MEDICAID ==
[~2018-09-18] VITALS: Ht 177.8 cm; Wt 80.0 kg
[~2018-09-18 08:04] MED LIST changes: -LIDOcaine 1% 30ml preserv. free vial SQ STA
[2018-09-18] MEDS ORDERED: normal saline 1000ml 1,000 ML IV PRN (08:35)
[2018-09-18] MEDS ORDERED: albumin (human) 25% 100 ML IV solution IV PRN (08:35)
[2018-09-18 08:58] VITALS: BP 137/59
[2018-09-18 09:25] VITALS: BP 134/51
[2018-09-18] MEDS ORDERED: LIDOcaine 1% 30ml preserv. free vial SQ ONE (09:30)
[2018-09-18 09:40] VITALS: BP 126/53
[2018-09-18 09:55] VITALS: BP 138/53
[2018-09-18 10:15] VITALS: BP 135/53
[2018-09-18 10:30] VITALS: BP 148/61
== END 2018-09-18 10:51 | disposition home or self-care (01) ==
LOC: SSTAY O 08:04
PROVIDERS: ATTEND Radiology Diagnostic Radiology
DX: R18.8 Other ascites (principal); K74.60 Unspecified cirrhosis of liver; I10 Essential (primary) hypertension; J44.9 Chronic obstructive pulmonary disease, unspecified; D64.9 Anemia, unspecified; D32.9 Benign neoplasm of meninges, unspecified; K21.9 Gastro-esophageal reflux disease without esophagitis; E11.9 Type 2 diabetes mellitus without complications; K73.9 Chronic hepatitis, unspecified; F03.90 Unspecified dementia, unspecified severity, without behavioral disturbance, psychotic disturbance, mood disturbance, and anxiety; Z90.710 Acquired absence of both cervix and uterus; Z98.890 Other specified postprocedural states; Z79.899 Other long term (current) drug therapy
CPT/HCPCS: 49083; 84157; 87015; 87070; 87116; 87206; C1729; J3490; J7030; 36415; 88108; 88305